=== PATIENT | female | born 1935 | race Caucasian/White ===

== ENCOUNTER 2017-06-18 04:03 | Inpatient (IN) | payer MEDICARE ==
[~2017-06-18] VITALS: Ht 147.3 cm; Wt 46.0 kg
[~2017-06-18 04:03] MED LIST: ACET-2247 PO; ASPI81TA33 PO; CLOP75 PO; DSS100 PO; METO25 PO; MULT1CAP32 PO; NITR.4 SL; PANT40TA25 PO; SENN8.6T52 PO; SIMV-261 PO; VITAD1000 PO; ZOLP5 PO
[2017-06-18] MEDS ORDERED: LACT30L PO (04:14)
[2017-06-18] MEDS ORDERED: LOSA50TA37 PO (04:14)
[2017-06-18] MEDS ORDERED: MOM30 PO (04:14)
[2017-06-18 04:23] LABS: GLUCOSE,POINT OF CARE 115 MG/DL (70-110)
[2017-06-18 05:16] LABS: BASOPHILS # (AUTO) 0.02 K/uL (0.00-0.20); BASOPHILS % (AUTO) 0.4 % (0.0-2.0); EOSINOPHILS # (AUTO) 0.13 K/uL (0.00-0.70); EOSINOPHILS % (AUTO) 2.17 % (1.0-6.0); HEMOGLOBIN 11.4 g/dL (12.0-16.0); LYMPHOCYTES # (AUTO) 1.6 K/uL (1.0-4.8); LYMPHOCYTES % (AUTO) 26.6 % (22.0-44.0); MEAN CORPUSCULAR HEMOGLOBIN 34.6 pg (26.0-34.0); MEAN CORPUSCULAR HGB CONC 33.7 G/dL (31.0-37.0); MEAN CORPUSCULAR VOLUME 103 fL (80-100); MONOCYTES # (AUTO) 0.5 K/uL (0.1-1.0); MONOCYTES % (AUTO) 8.8 % (2.0-9.0); NEUTROPHILS # (AUTO) 3.7 K/uL (1.8-7.7); NEUTROPHILS % (AUTO) 62.1 % (40.0-70.0); PLATELET COUNT (AUTO) 271 K/uL (150-450); RED BLOOD CELL COUNT(AUTO) 3.31 MIL/uL (4.00-5.20); RED CELL DISTRIBUTION WIDTH 13.8 % (11.5-14.5); WHITE BLOOD COUNT (AUTO) 5.9 K/uL (4.5-11.0)
[2017-06-18 05:20] LABS: ANION GAP 5 mmol/L (8-16); CALCIUM, TOTAL 9.7 mg/dL (8.8-10.5); CARBON DIOXIDE 35 mmol/L (22-29); CHLORIDE 100 mmol/L (98-107); GLOMERULAR FILTR. RATE CALC > 60 mL/min (>60); POTASSIUM 4.1 mmol/L (3.5-5.1); SODIUM SERUM 140 mmol/L (136-145); UREA NITROGEN, BLOOD 15 mg/dL (7-18)
[2017-06-18 05:27] LABS: ALANINE AMINOTRANSFERASE 17 U/L (12-78); ALBUMIN 3.8 g/dL (3.4-5.0); ASPARTATE AMINOTRANSFERASE 19 U/L (15-37); BILIRUBIN,TOTAL 0.4 mg/dL (0.1-1.0); TOTAL PROTEIN, SERUM 7.4 g/dL (6.4-8.2)
[2017-06-18 05:42] LABS: B-TYPE NATRIURETIC PEPTIDE 24 pg/mL (0-100)
[2017-06-18 05:44] LABS: APPEARANCE,URINE CLOUDY (CLEAR); GLUCOSE, URINE (UA) NEGATIVE (NEGATIVE); KETONES,URINE NEGATIVE (NEGATIVE); LEUKOCYTE ESTERASE ,URINE MODERATE (NEGATIVE); OCCULT BLOOD,URINE NEGATIVE (NEGATIVE); PROTEIN,URINE NEGATIVE (NEGATIVE)
[2017-06-18 05:55] LABS: ADD UA MICROSCOPIC YES
[2017-06-18 06:05] LABS: RBC,URINE 0-2 /HPF (0-2); SQUAMOUS EPITHELIAL CELL,UR Few /LPF (None Seen)
[2017-06-18] MEDS ORDERED: 0.9% SODIUM CHLORIDE 10 ML SYRINGE IVP PRN (08:45)
[2017-06-18] MEDS ORDERED: ACETAMINOPHEN 325 MG TABLET PO PRN (08:45)
[2017-06-18] MEDS ORDERED: ONDANSETRON HCL 4 MG/2 ML VIAL IVP PRN (08:45)
[2017-06-18] MEDS ORDERED: MAGNESIUM HYDROXIDE SUSPENSION 30 ML UDCUP PO PRN (09:45)
[2017-06-18 11:29] VITALS: BP 145/80
[2017-06-18] MEDS: CLOPIDOGREL BISULFATE 75 MG TABLET PO SCH (12:29)
[2017-06-18] MEDS: ASPIRIN 81 MG CHEWABLE TABLET PO SCH (12:29)
[2017-06-18] MEDS: PANTOPRAZOLE SODIUM 40 MG DR TABLET PO SCH (12:29)
[2017-06-18 16:52] VITALS: BP 164/84
[2017-06-18 19:29] VITALS: BP 171/83
[2017-06-18] MEDS: HEPARIN SODIUM,PORCINE 5,000 UNITS/ML VIAL SQ SCH (20:32)
[2017-06-18] MEDS: SIMVASTATIN 20 MG TABLET PO SCH (20:33)
[2017-06-18] MEDS: METOPROLOL TARTRATE 25 MG TABLET PO SCH (20:33)
[2017-06-18] MEDS: DOCUSATE SODIUM 100 MG CAPSULE PO SCH (20:33)
[2017-06-19 00:02] VITALS: BP 123/75
[2017-06-19 06:41] LABS: BASOPHILS % (AUTO) 0.3 % (0.0-2.0); EOSINOPHILS % (AUTO) 2.1 % (1.0-6.0); HEMATOCRIT 35.1 % (36-46); HEMOGLOBIN 11.9 g/dL (12.0-16.0); LYMPHOCYTES # (AUTO) 1.6 K/uL (1.0-4.8); LYMPHOCYTES % (AUTO) 29.5 % (22.0-44.0); MEAN CORPUSCULAR HEMOGLOBIN 34.8 pg (26.0-34.0); MEAN CORPUSCULAR VOLUME 102 fL (80-100); MONOCYTES # (AUTO) 0.6 K/uL (0.1-1.0); MONOCYTES % (AUTO) 10.6 % (2.0-9.0); NEUTROPHILS # (AUTO) 3.1 K/uL (1.8-7.7); NEUTROPHILS % (AUTO) 57.5 % (40.0-70.0); PLATELET COUNT (AUTO) 297 K/uL (150-450); RED BLOOD CELL COUNT(AUTO) 3.43 MIL/uL (4.00-5.20); RED CELL DISTRIBUTION WIDTH 14.3 % (11.5-14.5); WHITE BLOOD COUNT (AUTO) 5.5 K/uL (4.5-11.0)
[2017-06-19 07:04] LABS: ALANINE AMINOTRANSFERASE 20 U/L (12-78); ALBUMIN 3.6 g/dL (3.4-5.0); ANION GAP 5 mmol/L (8-16); ASPARTATE AMINOTRANSFERASE 23 U/L (15-37); BILIRUBIN,TOTAL 0.5 mg/dL (0.1-1.0); CARBON DIOXIDE 33 mmol/L (22-29); CHLORIDE 102 mmol/L (98-107); GLOMERULAR FILTR. RATE CALC > 60 mL/min (>60); POTASSIUM 4.1 mmol/L (3.5-5.1); SODIUM SERUM 140 mmol/L (136-145); TOTAL PROTEIN, SERUM 7.1 g/dL (6.4-8.2); UREA NITROGEN, BLOOD 10 mg/dL (7-18)
[2017-06-19 07:42] VITALS: BP 120/71
[2017-06-19 08:06] LABS: RBC MORPHOLOGY COMMENT ABNORMAL RBC MORPH
[2017-06-19] MEDS: PANTOPRAZOLE SODIUM 40 MG DR TABLET PO SCH (09:05)
[2017-06-19] MEDS: METOPROLOL TARTRATE 25 MG TABLET PO SCH ×2 (09:05→20:40)
[2017-06-19] MEDS: ASPIRIN 81 MG CHEWABLE TABLET PO SCH (09:05)
[2017-06-19] MEDS: LISINOPRIL 5 MG TABLET PO SCH (09:05)
[2017-06-19] MEDS: DOCUSATE SODIUM 100 MG CAPSULE PO SCH ×2 (09:05→20:39)
[2017-06-19] MEDS: CLOPIDOGREL BISULFATE 75 MG TABLET PO SCH (09:05)
[2017-06-19] MEDS: HEPARIN SODIUM,PORCINE 5,000 UNITS/ML VIAL SQ SCH ×2 (09:08→20:40)
[2017-06-19 11:35] VITALS: BP 121/91
[2017-06-19 15:51] VITALS: BP 161/102
[2017-06-19 19:32] VITALS: BP 104/63
[2017-06-19] MEDS: SIMVASTATIN 20 MG TABLET PO SCH (20:40)
[2017-06-19 20:45] VITALS: BP 112/65
[2017-06-20] VITALS (8 sets, daily range): BP systolic 104–140; BP diastolic 44–86
[2017-06-20] MEDS: OxyCODONE HCL/ACETAMINOPHEN 5-325 MG TABLET PO PRN (00:54)
[2017-06-20] MEDS: DOCUSATE SODIUM 100 MG CAPSULE PO SCH ×2 (09:00→20:47)
[2017-06-20] MEDS: CLOPIDOGREL BISULFATE 75 MG TABLET PO SCH (09:00)
[2017-06-20] MEDS: LISINOPRIL 5 MG TABLET PO SCH (09:00)
[2017-06-20] MEDS: PANTOPRAZOLE SODIUM 40 MG DR TABLET PO SCH (09:00)
[2017-06-20] MEDS: METOPROLOL TARTRATE 25 MG TABLET PO SCH ×2 (09:00→20:46)
[2017-06-20] MEDS: ASPIRIN 81 MG CHEWABLE TABLET PO SCH (09:00)
[2017-06-20] MEDS: HEPARIN SODIUM,PORCINE 5,000 UNITS/ML VIAL SQ SCH ×2 (09:31→20:47)
[2017-06-20] MEDS: ACETAMINOPHEN 325 MG TABLET PO PRN (12:41)
[2017-06-20] MEDS ORDERED: SODIUM CHLORIDE 0.9% 250 ML IV ONE (16:32)
[2017-06-20] MEDS: LEVOFLOXACIN 500 MG/D5% WATER 100 ML IV SCH (16:39)
[2017-06-20] MEDS: SIMVASTATIN 20 MG TABLET PO SCH (20:46)
[2017-06-21 04:48] VITALS: BP 152/59
[2017-06-21 07:18] VITALS: BP 103/44
[2017-06-21] MEDS: ASPIRIN 81 MG CHEWABLE TABLET PO SCH (08:53)
[2017-06-21] MEDS: METOPROLOL TARTRATE 25 MG TABLET PO SCH ×2 (08:53→20:29)
[2017-06-21] MEDS: LISINOPRIL 5 MG TABLET PO SCH (08:53)
[2017-06-21] MEDS: PANTOPRAZOLE SODIUM 40 MG DR TABLET PO SCH (08:53)
[2017-06-21] MEDS: HEPARIN SODIUM,PORCINE 5,000 UNITS/ML VIAL SQ SCH ×2 (08:53→20:29)
[2017-06-21] MEDS: CLOPIDOGREL BISULFATE 75 MG TABLET PO SCH (08:53)
[2017-06-21] MEDS: DOCUSATE SODIUM 100 MG CAPSULE PO SCH ×2 (08:53→20:29)
[2017-06-21 11:00] VITALS: BP 110/68
[2017-06-21 15:00] VITALS: BP 122/58
[2017-06-21] MEDS: ACETAMINOPHEN 325 MG TABLET PO PRN (18:01)
[2017-06-21] MEDS: LEVOFLOXACIN 500 MG/D5% WATER 100 ML IV SCH (18:03)
[2017-06-21 19:17] VITALS: BP 140/92
[2017-06-21] MEDS: SIMVASTATIN 20 MG TABLET PO SCH (20:29)
[2017-06-21 23:20] VITALS: BP 149/67
[2017-06-22 04:10] VITALS: BP 155/70
[2017-06-22 07:23] VITALS: BP 133/89
[2017-06-22] MEDS: DOCUSATE SODIUM 100 MG CAPSULE PO SCH ×2 (08:16→20:25)
[2017-06-22] MEDS: ASPIRIN 81 MG CHEWABLE TABLET PO SCH (08:16)
[2017-06-22] MEDS: CLOPIDOGREL BISULFATE 75 MG TABLET PO SCH (08:17)
[2017-06-22] MEDS: PANTOPRAZOLE SODIUM 40 MG DR TABLET PO SCH (08:17)
[2017-06-22] MEDS: LISINOPRIL 5 MG TABLET PO SCH (08:17)
[2017-06-22] MEDS: METOPROLOL TARTRATE 25 MG TABLET PO SCH ×2 (08:17→20:25)
[2017-06-22] MEDS: HEPARIN SODIUM,PORCINE 5,000 UNITS/ML VIAL SQ SCH ×2 (08:18→20:59)
[2017-06-22] MEDS ORDERED: HEPA500018 SQ (12:14)
[2017-06-22] MEDS ORDERED: HEPA500041 SQ (12:14)
[2017-06-22] MEDS ORDERED: LISI-660 PO (12:16)
[2017-06-22] MEDS ORDERED: METO25 PO (12:16)
[2017-06-22] MEDS ORDERED: PANT40TA25 PO (12:21)
[2017-06-22] MEDS ORDERED: SIMV-260 PO (12:22)
[2017-06-22 14:51] VITALS: BP 92/60
[2017-06-22] MEDS ORDERED: ASPIRIN 325 MG TABLET PO ONE (16:45)
[2017-06-22] MEDS ORDERED: IOVERSOL 350 MG/ML 100 ML VIAL ONE (17:15)
[2017-06-22] MEDS ORDERED: SODIUM CHLORIDE 0.9% 100 ML ONE (17:15)
[2017-06-22 18:35] LABS: BASOPHILS % (AUTO) 0.3 % (0.0-2.0); EOSINOPHILS % (AUTO) 2.5 % (1.0-6.0); HEMATOCRIT 31.8 % (36-46); HEMOGLOBIN 10.8 g/dL (12.0-16.0); LYMPHOCYTES # (AUTO) 1.5 K/uL (1.0-4.8); LYMPHOCYTES % (AUTO) 28.7 % (22.0-44.0); MEAN CORPUSCULAR HEMOGLOBIN 34.9 pg (26.0-34.0); MEAN CORPUSCULAR HGB CONC 33.9 G/dL (31.0-37.0); MEAN CORPUSCULAR VOLUME 103 fL (80-100); MONOCYTES # (AUTO) 0.7 K/uL (0.1-1.0); MONOCYTES % (AUTO) 13.7 % (2.0-9.0); NEUTROPHILS # (AUTO) 2.9 K/uL (1.8-7.7); NEUTROPHILS % (AUTO) 54.8 % (40.0-70.0); PLATELET COUNT (AUTO) 254 K/uL (150-450); RED BLOOD CELL COUNT(AUTO) 3.09 MIL/uL (4.00-5.20); RED CELL DISTRIBUTION WIDTH 13.7 % (11.5-14.5); WHITE BLOOD COUNT (AUTO) 5.4 K/uL (4.5-11.0)
[2017-06-22 19:26] LABS: RBC MORPHOLOGY COMMENT NORMAL RBC MORPH
[2017-06-22 19:29] LABS: ANION GAP 6 mmol/L (8-16); CALCIUM, TOTAL 9.4 mg/dL (8.8-10.5); CARBON DIOXIDE 35 mmol/L (22-29); CHLORIDE 97 mmol/L (98-107); CREATININE 0.67 mg/dL (0.60-1.30); GLOMERULAR FILTR. RATE CALC > 60 mL/min (>60); POTASSIUM 4.5 mmol/L (3.5-5.1); SODIUM SERUM 138 mmol/L (136-145); UREA NITROGEN, BLOOD 15 mg/dL (7-18)
[2017-06-22 19:33] LABS: PHOSPHORUS 3.1 mg/dL (2.5-4.9)
[2017-06-22 20:00] VITALS: BP 146/74
[2017-06-22] MEDS: SIMVASTATIN 20 MG TABLET PO SCH (20:25)
[2017-06-22] MEDS ORDERED: SODIUM CHLORIDE 0.9% 250 ML IV ONE (21:01)
[2017-06-22] MEDS: LEVOFLOXACIN 500 MG/D5% WATER 100 ML IV SCH (21:04)
[2017-06-23] VITALS (7 sets, daily range): BP systolic 70–145; BP diastolic 40–83
[2017-06-23 07:17] LABS: GLUCOSE,POINT OF CARE 107 MG/DL (70-110)
[2017-06-23] MEDS: METOPROLOL TARTRATE 25 MG TABLET PO SCH ×2 (09:00→20:52)
[2017-06-23] MEDS: LISINOPRIL 5 MG TABLET PO SCH (09:00)
[2017-06-23] MEDS: CLOPIDOGREL BISULFATE 75 MG TABLET PO SCH (09:20)
[2017-06-23] MEDS: ASPIRIN 81 MG CHEWABLE TABLET PO SCH (09:20)
[2017-06-23] MEDS: PANTOPRAZOLE SODIUM 40 MG DR TABLET PO SCH (09:20)
[2017-06-23] MEDS: DOCUSATE SODIUM 100 MG CAPSULE PO SCH ×2 (09:20→20:51)
[2017-06-23] MEDS: HEPARIN SODIUM,PORCINE 5,000 UNITS/ML VIAL SQ SCH ×2 (09:20→20:51)
[2017-06-23] MEDS: LEVOFLOXACIN 500 MG/D5% WATER 100 ML IV SCH (15:57)
[2017-06-23] MEDS: OxyCODONE HCL/ACETAMINOPHEN 5-325 MG TABLET PO PRN (20:14)
[2017-06-23] MEDS: SIMVASTATIN 20 MG TABLET PO SCH (20:51)
[2017-06-23] MEDS: ACETAMINOPHEN 325 MG TABLET PO PRN (23:43)
[2017-06-24 05:03] VITALS: BP 147/50
[2017-06-24 06:25] LABS: BASOPHILS % (AUTO) 0.2 % (0.0-2.0); EOSINOPHILS % (AUTO) 1.7 % (1.0-6.0); HEMATOCRIT 30.1 % (36-46); HEMOGLOBIN 10.3 g/dL (12.0-16.0); LYMPHOCYTES # (AUTO) 1.2 K/uL (1.0-4.8); LYMPHOCYTES % (AUTO) 17.4 % (22.0-44.0); MEAN CORPUSCULAR HEMOGLOBIN 35.3 pg (26.0-34.0); MEAN CORPUSCULAR VOLUME 104 fL (80-100); MONOCYTES # (AUTO) 0.9 K/uL (0.1-1.0); NEUTROPHILS # (AUTO) 4.5 K/uL (1.8-7.7); NEUTROPHILS % (AUTO) 67.7 % (40.0-70.0); PLATELET COUNT (AUTO) 218 K/uL (150-450); RED CELL DISTRIBUTION WIDTH 13.6 % (11.5-14.5); WHITE BLOOD COUNT (AUTO) 6.7 K/uL (4.5-11.0)
[2017-06-24 07:00] LABS: ANION GAP 2 mmol/L (8-16); CARBON DIOXIDE 38 mmol/L (22-29); CHLORIDE 98 mmol/L (98-107); CREATININE 0.67 mg/dL (0.60-1.30); POTASSIUM 4.3 mmol/L (3.5-5.1); SODIUM SERUM 138 mmol/L (136-145); UREA NITROGEN, BLOOD 16 mg/dL (7-18)
[2017-06-24 07:01] LABS: ALANINE AMINOTRANSFERASE 18 U/L (12-78); ALBUMIN 3.2 g/dL (3.4-5.0); ASPARTATE AMINOTRANSFERASE 14 U/L (15-37); BILIRUBIN,TOTAL 0.2 mg/dL (0.1-1.0); GLOMERULAR FILTR. RATE CALC > 60 mL/min (>60); TOTAL PROTEIN, SERUM 6.9 g/dL (6.4-8.2)
[2017-06-24 07:14] VITALS: BP 145/70
[2017-06-24] MEDS ORDERED: OXYGEN THERAPY IH SCH (08:00)
[2017-06-24 08:22] LABS: RBC MORPHOLOGY COMMENT ABNORMAL RBC MORPH
[2017-06-24] MEDS: DOCUSATE SODIUM 100 MG CAPSULE PO SCH (08:46)
[2017-06-24] MEDS: ASPIRIN 81 MG CHEWABLE TABLET PO SCH (08:46)
[2017-06-24] MEDS: LISINOPRIL 5 MG TABLET PO SCH (08:47)
[2017-06-24] MEDS: HEPARIN SODIUM,PORCINE 5,000 UNITS/ML VIAL SQ SCH (08:47)
[2017-06-24] MEDS: CLOPIDOGREL BISULFATE 75 MG TABLET PO SCH (08:47)
[2017-06-24] MEDS: METOPROLOL TARTRATE 25 MG TABLET PO SCH (08:47)
[2017-06-24] MEDS: PANTOPRAZOLE SODIUM 40 MG DR TABLET PO SCH (08:47)
[2017-06-24] MEDS ORDERED: PANT40TA25 PO (10:32)
[2017-06-24] MEDS ORDERED: LEVO500P7 IV ×2 (10:34→10:36)
[2017-06-24 11:47] VITALS: BP 116/61
[2017-06-24] MEDS ORDERED: SODIUM CHLORIDE 0.9% 100 ML ONE (15:39)
[2017-06-24] MEDS: LEVOFLOXACIN 500 MG/D5% WATER 100 ML IV SCH (15:47)
[2017-06-24 16:48] VITALS: BP 119/62
== END 2017-06-24 17:00 | DRG 69 ==
LOC: EMS 04:04 → 5N 09:52 → ICU 06-22 17:15 → 5S 06-23 18:50
PROVIDERS: ADMIT Internal Medicine; ATTEND Internal Medicine
DX: G45.9 Transient cerebral ischemic attack, unspecified (principal); G93.41 Metabolic encephalopathy; N39.0 Urinary tract infection, site not specified; F03.90 Unspecified dementia, unspecified severity, without behavioral disturbance, psychotic disturbance, mood disturbance, and anxiety; R07.89 Other chest pain; I25.10 Atherosclerotic heart disease of native coronary artery without angina pectoris; J44.9 Chronic obstructive pulmonary disease, unspecified; E11.9 Type 2 diabetes mellitus without complications; E78.5 Hyperlipidemia, unspecified; I10 Essential (primary) hypertension; I25.119 Atherosclerotic heart disease of native coronary artery with unspecified angina pectoris; R29.810 Facial weakness; F41.1 Generalized anxiety disorder; M19.90 Unspecified osteoarthritis, unspecified site; Z95.5 Presence of coronary angioplasty implant and graft; Z88.8 Allergy status to other drugs, medicaments and biological substances; Z82.49 Family history of ischemic heart disease and other diseases of the circulatory system; Z88.0 Allergy status to penicillin; Z91.013 Allergy to seafood
CPT/HCPCS: 70450; 70496; 74022; 82962; 83735; 84100; 87081; 87086; 92610; 93005; 95816; 97162; 99285; J1644; J1956; J7050

== ENCOUNTER 2017-06-28 22:06 | Inpatient (IN) | payer MEDICARE ==
[~2017-06-28] VITALS: Ht 152.4 cm; Wt 44.2 kg
[~2017-06-28 22:06] MED LIST changes: +HEPA500018 SQ; +LEVO500P7 IV; +LISI-660 PO; +MOM30 PO; -NITR.4 SL; -SENN8.6T52 PO; +SIMV-260 PO; -SIMV-261 PO; -ZOLP5 PO
[2017-06-28 22:22] LABS: GLUCOSE,POINT OF CARE 101 MG/DL (70-110)
[2017-06-28] MEDS ORDERED: BISA10S PR (22:22)
[2017-06-28] MEDS ORDERED: FE RC (22:22)
[2017-06-28 22:48] LABS: BASOPHILS # (AUTO) 0.03 K/uL (0.00-0.20); BASOPHILS % (AUTO) 0.6 % (0.0-2.0); EOSINOPHILS # (AUTO) 0.15 K/uL (0.00-0.70); EOSINOPHILS % (AUTO) 3.33 % (1.0-6.0); HEMOGLOBIN 10.3 g/dL (12.0-16.0); LYMPHOCYTES # (AUTO) 1.5 K/uL (1.0-4.8); LYMPHOCYTES % (AUTO) 32.1 % (22.0-44.0); MEAN CORPUSCULAR HEMOGLOBIN 34.3 pg (26.0-34.0); MEAN CORPUSCULAR HGB CONC 33.1 G/dL (31.0-37.0); MEAN CORPUSCULAR VOLUME 104 fL (80-100); MONOCYTES # (AUTO) 0.7 K/uL (0.1-1.0); MONOCYTES % (AUTO) 16.1 % (2.0-9.0); NEUTROPHILS # (AUTO) 2.2 K/uL (1.8-7.7); NEUTROPHILS % (AUTO) 47.9 % (40.0-70.0); PLATELET COUNT (AUTO) 220 K/uL (150-450); RED BLOOD CELL COUNT(AUTO) 2.99 MIL/uL (4.00-5.20); RED CELL DISTRIBUTION WIDTH 14.3 % (11.5-14.5); WHITE BLOOD COUNT (AUTO) 4.6 K/uL (4.5-11.0)
[2017-06-28 23:18] LABS: INR 1.1 (0.9-1.1); PROTHROMBIN TIME 11.2 SEC (9.4-11.6)
[2017-06-28 23:20] LABS: B-TYPE NATRIURETIC PEPTIDE 27 pg/mL (0-100)
[2017-06-28 23:30] LABS: ANION GAP 4 mmol/L (8-16); CALCIUM, TOTAL 9.3 mg/dL (8.8-10.5); CARBON DIOXIDE 34 mmol/L (22-29); CHLORIDE 102 mmol/L (98-107); CREATININE 0.66 mg/dL (0.60-1.30); GLOMERULAR FILTR. RATE CALC > 60 mL/min (>60); POTASSIUM 4.6 mmol/L (3.5-5.1); SODIUM SERUM 140 mmol/L (136-145); UREA NITROGEN, BLOOD 16 mg/dL (7-18)
[2017-06-28] MEDS ORDERED: MAG HYDROX/AL HYDROX/SIMETH ES 30 ML SUSPENSION UDCUP PO ONE (23:30)
[2017-06-28 23:42] LABS: ALANINE AMINOTRANSFERASE 18 U/L (12-78); ALBUMIN 3.2 g/dL (3.4-5.0); ASPARTATE AMINOTRANSFERASE 13 U/L (15-37); BILIRUBIN,TOTAL 0.2 mg/dL (0.1-1.0); CREATINE KINASE MB 0.6 ng/mL (0-5); CREATINE KINASE, TOTAL 80 U/L (26-192); TOTAL PROTEIN, SERUM 6.9 g/dL (6.4-8.2)
[2017-06-29 00:47] LABS: APPEARANCE,URINE CLEAR (CLEAR); GLUCOSE, URINE (UA) NEGATIVE (NEGATIVE); KETONES,URINE NEGATIVE (NEGATIVE); LEUKOCYTE ESTERASE ,URINE SMALL (NEGATIVE); OCCULT BLOOD,URINE NEGATIVE (NEGATIVE); PROTEIN,URINE NEGATIVE (NEGATIVE)
[2017-06-29 00:50] LABS: ADD UA MICROSCOPIC YES
[2017-06-29] MEDS ORDERED: ACETAMINOPHEN 325 MG TABLET PO ONE (01:15)
[2017-06-29 01:18] LABS: RBC,URINE 0-2 /HPF (0-2)
[2017-06-29 01:19] LABS: SQUAMOUS EPITHELIAL CELL,UR Rare /LPF (None Seen)
[2017-06-29] MEDS ORDERED: HYDROmorphone 2 MG/ML SYRINGE IVP ONE (02:45)
[2017-06-29] MEDS ORDERED: POTASSIUM CHL 20 MEQ/D5-0.45NS 1,000 ML IV ONE (02:45)
[2017-06-29] MEDS ORDERED: BARIUM SULFATE 0.1% SUSPENSION 450 ML BOTTLE PO ONE (02:45)
[2017-06-29] MEDS ORDERED: MORPHINE SULFATE 4 MG/ML SYRINGE IVP PRN (02:45)
[2017-06-29] MEDS ORDERED: 0.9% SODIUM CHLORIDE 10 ML SYRINGE IVP PRN (02:45)
[2017-06-29] MEDS ORDERED: ONDANSETRON HCL 4 MG/2 ML VIAL IVP PRN ×2 (02:45→04:00)
[2017-06-29] MEDS ORDERED: ONDANSETRON HCL 4 MG/2 ML VIAL IVP ONE (02:45)
[2017-06-29] MEDS ORDERED: ACETAMINOPHEN 325 MG TABLET PO PRN ×2 (02:45→04:00)
[2017-06-29] MEDS ORDERED: IOVERSOL 350 MG/ML 100 ML VIAL ONE (03:15)
[2017-06-29] MEDS ORDERED: SODIUM CHLORIDE 0.9% 100 ML ONE (03:15)
[2017-06-29] MEDS ORDERED: OxyCODONE HCL/ACETAMINOPHEN 5-325 MG TABLET PO PRN (04:00)
[2017-06-29] MEDS ORDERED: BISACODYL 10 MG RECTAL RECTAL SUPPOSITORY PR PRN (04:00)
[2017-06-29] MEDS ORDERED: IPRATROPIUM BROMIDE 0.5 MG/2.5 ML NEB SOLUTION NEB PRN (04:00)
[2017-06-29] MEDS ORDERED: ALBUTEROL SULFATE 2.5 MG/0.5 ML NEB SOLUTION NEB PRN (04:00)
[2017-06-29] MEDS ORDERED: ZOLPIDEM TARTRATE 5 MG TABLET PO PRN (04:00)
[2017-06-29] MEDS ORDERED: MORPHINE SULFATE 2 MG/ML SYRINGE IVP PRN (04:00)
[2017-06-29] MEDS ORDERED: MAGNESIUM HYDROXIDE SUSPENSION 30 ML UDCUP PO PRN (04:00)
[2017-06-29 05:16] VITALS: BP 117/92
[2017-06-29 07:19] VITALS: BP_SYST 107; BP_SYST 114; BP_DIAS 51; BP_DIAS 60
[2017-06-29] MEDS: METOPROLOL TARTRATE 25 MG TABLET PO SCH ×2 (08:40→20:37)
[2017-06-29] MEDS: LISINOPRIL 5 MG TABLET PO SCH (08:40)
[2017-06-29] MEDS: SIMVASTATIN 20 MG TABLET PO SCH (08:40)
[2017-06-29] MEDS: ASPIRIN 81 MG EC TABLET PO SCH (08:40)
[2017-06-29] MEDS: PANTOPRAZOLE SODIUM 40 MG/VIAL IVP SCH (08:40)
[2017-06-29] MEDS: HEPARIN SODIUM,PORCINE 5,000 UNITS/ML VIAL SQ SCH ×2 (08:48→20:38)
[2017-06-29 11:43] VITALS: BP 133/65
[2017-06-29 15:37] VITALS: BP 133/68
[2017-06-29 19:45] VITALS: BP 100/61
[2017-06-29] MEDS: CLOPIDOGREL BISULFATE 75 MG TABLET PO SCH (20:37)
[2017-06-29 23:15] VITALS: BP 110/55
[2017-06-30 04:05] VITALS: BP 123/50
[2017-06-30 06:01] LABS: BASOPHILS # (AUTO) 0.02 K/uL (0.00-0.20); BASOPHILS % (AUTO) 0.3 % (0.0-2.0); EOSINOPHILS % (AUTO) 1.47 % (1.0-6.0); HEMATOCRIT 32.3 % (36-46); HEMOGLOBIN 10.7 g/dL (12.0-16.0); LYMPHOCYTES # (AUTO) 1.4 K/uL (1.0-4.8); LYMPHOCYTES % (AUTO) 20.3 % (22.0-44.0); MEAN CORPUSCULAR HEMOGLOBIN 34.6 pg (26.0-34.0); MEAN CORPUSCULAR HGB CONC 33.2 G/dL (31.0-37.0); MEAN CORPUSCULAR VOLUME 104 fL (80-100); MONOCYTES # (AUTO) 0.8 K/uL (0.1-1.0); MONOCYTES % (AUTO) 10.8 % (2.0-9.0); NEUTROPHILS # (AUTO) 4.8 K/uL (1.8-7.7); NEUTROPHILS % (AUTO) 67.2 % (40.0-70.0); PLATELET COUNT (AUTO) 253 K/uL (150-450); RED CELL DISTRIBUTION WIDTH 14.1 % (11.5-14.5); WHITE BLOOD COUNT (AUTO) 7.1 K/uL (4.5-11.0)
[2017-06-30 06:05] LABS: PROTHROMBIN TIME 10.6 SEC (9.4-11.6)
[2017-06-30 06:41] LABS: ALANINE AMINOTRANSFERASE 15 U/L (12-78); AMYLASE 52 U/L (25-115); ASPARTATE AMINOTRANSFERASE 13 U/L (15-37); BILIRUBIN,TOTAL 0.2 mg/dL (0.1-1.0); CHLORIDE 100 mmol/L (98-107); CHOL/HDL RATIO 2.7 (3.9-5.7); CREATININE 0.59 mg/dL (0.60-1.30); GLOMERULAR FILTR. RATE CALC > 60 mL/min (>60); PHOSPHORUS 4.2 mg/dL (2.5-4.9); POTASSIUM 4.7 mmol/L (3.5-5.1); SODIUM SERUM 140 mmol/L (136-145); THYROID STIMULATING HORMONE 3.97 uIU/mL (0.36-3.74); TOTAL PROTEIN, SERUM 6.6 g/dL (6.4-8.2); UREA NITROGEN, BLOOD 7 mg/dL (7-18)
[2017-06-30 06:56] LABS: ANION GAP 0 mmol/L (8-16)
[2017-06-30 06:57] LABS: CARBON DIOXIDE 40 mmol/L (22-29)
[2017-06-30 07:08] VITALS: BP 129/61
[2017-06-30] MEDS: CLOPIDOGREL BISULFATE 75 MG TABLET PO SCH (07:58)
[2017-06-30] MEDS: ASPIRIN 81 MG EC TABLET PO SCH (07:58)
[2017-06-30] MEDS: PANTOPRAZOLE SODIUM 40 MG/VIAL IVP SCH (07:58)
[2017-06-30] MEDS: HEPARIN SODIUM,PORCINE 5,000 UNITS/ML VIAL SQ SCH ×2 (07:58→20:06)
[2017-06-30] MEDS: SIMVASTATIN 20 MG TABLET PO SCH (07:58)
[2017-06-30] MEDS: LISINOPRIL 5 MG TABLET PO SCH (07:59)
[2017-06-30] MEDS: METOPROLOL TARTRATE 25 MG TABLET PO SCH ×2 (08:00→20:06)
[2017-06-30 09:32] LABS: RBC MORPHOLOGY COMMENT ABNORMAL RBC MORPH
[2017-06-30 11:25] VITALS: BP 99/55
[2017-06-30 15:41] VITALS: BP 83/44
[2017-06-30 16:11] VITALS: BP 101/73
[2017-06-30 19:53] VITALS: BP 105/56
[2017-07-01 00:52] VITALS: BP 118/55
[2017-07-01 05:16] VITALS: BP 108/50
[2017-07-01 08:11] VITALS: BP 112/66
[2017-07-01] MEDS: HEPARIN SODIUM,PORCINE 5,000 UNITS/ML VIAL SQ SCH (09:51)
[2017-07-01] MEDS: PANTOPRAZOLE SODIUM 40 MG/VIAL IVP SCH (09:51)
[2017-07-01] MEDS: SIMVASTATIN 20 MG TABLET PO SCH (09:51)
[2017-07-01] MEDS: CLOPIDOGREL BISULFATE 75 MG TABLET PO SCH (09:51)
[2017-07-01] MEDS: ASPIRIN 81 MG EC TABLET PO SCH (09:51)
[2017-07-01] MEDS: METOPROLOL TARTRATE 25 MG TABLET PO SCH (09:52)
[2017-07-01] MEDS: LISINOPRIL 5 MG TABLET PO SCH (09:52)
[2017-07-01 11:06] VITALS: BP 103/74
[2017-07-01 15:08] VITALS: BP 103/68
[2017-07-01 19:44] VITALS: BP 120/80
== END 2017-07-01 20:05 | DRG 391 ==
LOC: EMS 22:08 → 5N 06-29 03:36
PROVIDERS: ADMIT Internal Medicine; ATTEND Internal Medicine
DX: R10.9 Unspecified abdominal pain (principal); G93.40 Encephalopathy, unspecified; E44.0 Moderate protein-calorie malnutrition; F03.90 Unspecified dementia, unspecified severity, without behavioral disturbance, psychotic disturbance, mood disturbance, and anxiety; E11.9 Type 2 diabetes mellitus without complications; D64.9 Anemia, unspecified; I10 Essential (primary) hypertension; J98.11 Atelectasis; K59.00 Constipation, unspecified; E86.0 Dehydration; J44.9 Chronic obstructive pulmonary disease, unspecified; F32.9 Major depressive disorder, single episode, unspecified; F41.9 Anxiety disorder, unspecified; E78.5 Hyperlipidemia, unspecified; I25.10 Atherosclerotic heart disease of native coronary artery without angina pectoris; K21.9 Gastro-esophageal reflux disease without esophagitis; Z86.73 Personal history of transient ischemic attack (TIA), and cerebral infarction without residual deficits; M19.90 Unspecified osteoarthritis, unspecified site; Z79.02 Long term (current) use of antithrombotics/antiplatelets; Z79.82 Long term (current) use of aspirin; Z95.5 Presence of coronary angioplasty implant and graft; Z88.0 Allergy status to penicillin; Z91.013 Allergy to seafood
CPT/HCPCS: 74177; 76700; 82306; 82962; 83735; 84100; 84439; 84443; 87081; 93005; 96361; 96374; 96375; 99285; C9113; J1170; J1644; J2405; J3480; J7050

== ENCOUNTER 2017-07-13 21:55 | Inpatient (IN) | payer MEDICARE ==
[~2017-07-13] VITALS: Ht 154.9 cm; Wt 45.9 kg
[~2017-07-13 21:55] MED LIST changes: +BISA10S PR; -CLOP75 PO; +FE RC; -MULT1CAP32 PO; -VITAD1000 PO
[2017-07-13] MEDS ORDERED: 0.9% SODIUM CHLORIDE 10 ML SYRINGE IVP PRN (22:00)
[2017-07-13] MEDS ORDERED: NITR.4 SL (22:06)
[2017-07-13] MEDS ORDERED: MULT1TAB70 PO (22:06)
[2017-07-13] MEDS ORDERED: CLON-570 PO (22:06)
[2017-07-13] MEDS ORDERED: ALPR0.5T8 PO (22:06)
[2017-07-13] MEDS ORDERED: CLOP75 PO (22:06)
[2017-07-13] MEDS ORDERED: VITAD1000 PO (22:06)
[2017-07-13] MEDS ORDERED: MIDAZOLAM HCL 5 MG/ML VIAL IVP ONE (22:15)
[2017-07-13 22:23] LABS: EOSINOPHILS % (AUTO) 2.4 % (1.0-6.0); HEMATOCRIT 29.3 % (36-46); HEMOGLOBIN 9.8 g/dL (12.0-16.0); LYMPHOCYTES # (AUTO) 1.5 K/uL (1.0-4.8); MEAN CORPUSCULAR HEMOGLOBIN 34.4 pg (26.0-34.0); MEAN CORPUSCULAR HGB CONC 33.4 G/dL (31.0-37.0); MEAN CORPUSCULAR VOLUME 103 fL (80-100); MONOCYTES # (AUTO) 0.7 K/uL (0.1-1.0); MONOCYTES % (AUTO) 10.8 % (2.0-9.0); NEUTROPHILS # (AUTO) 4.4 K/uL (1.8-7.7); NEUTROPHILS % (AUTO) 63.8 % (40.0-70.0); PLATELET COUNT (AUTO) 343 K/uL (150-450); RED BLOOD CELL COUNT(AUTO) 2.85 MIL/uL (4.00-5.20); RED CELL DISTRIBUTION WIDTH 14.6 % (11.5-14.5); WHITE BLOOD COUNT (AUTO) 6.9 K/uL (4.5-11.0)
[2017-07-13] MEDS ORDERED: MIDAZOLAM HCL 2 MG/2 ML VIAL IVP ONE (22:30)
[2017-07-13 22:36] LABS: PROTHROMBIN TIME 10.9 SEC (9.4-11.6)
[2017-07-13 22:37] LABS: ANION GAP 1 mmol/L (8-16); CALCIUM, TOTAL 9.6 mg/dL (8.8-10.5); CARBON DIOXIDE 37 mmol/L (22-29); CHLORIDE 97 mmol/L (98-107); CREATININE 0.58 mg/dL (0.60-1.30); GLOMERULAR FILTR. RATE CALC > 60 mL/min (>60); POTASSIUM 4.3 mmol/L (3.5-5.1); SODIUM SERUM 135 mmol/L (136-145); UREA NITROGEN, BLOOD 14 mg/dL (7-18)
[2017-07-13 22:43] LABS: RBC MORPHOLOGY COMMENT ABNORMAL RBC MORPH
[2017-07-13] MEDS ORDERED: IPRATROPIUM BROMIDE 0.5 MG/2.5 ML NEB SOLUTION NEB ONE (23:00)
[2017-07-13] MEDS ORDERED: ALBUTEROL SULFATE 2.5 MG/0.5 ML NEB SOLUTION NEB ONE (23:00)
[2017-07-13 23:02] LABS: GLUCOSE,POINT OF CARE 125 MG/DL (70-110)
[2017-07-13 23:07] LABS: ABG A-A DIFF O2 314.9 mmHg (10-20.0); ABG BASE EXCESS 13.2 mmol/L (-2.0-3.0); ABG HCO3 34.2 mmol/L (22.0-26.0); ABG OXYHEMOGLOBIN 98.3 % (94.0-100.0); ABG PCO2 98 mmHg (35-45); ABG PH 7.237 (7.35-7.450); ALLEN TEST, BLOOD GAS POSITIVE; TEMPERATURE, FAHRENHEIT, BG 98.6 FAHREN (96.0-98.6)
[2017-07-13 23:08] LABS: ALANINE AMINOTRANSFERASE 15 U/L (12-78); ALBUMIN 3.3 g/dL (3.4-5.0); ASPARTATE AMINOTRANSFERASE 16 U/L (15-37); BILIRUBIN,TOTAL 0.4 mg/dL (0.1-1.0); CREATINE KINASE MB 1.4 ng/mL (0-5); CREATINE KINASE, TOTAL 134 U/L (26-192); TOTAL PROTEIN, SERUM 7.2 g/dL (6.4-8.2)
[2017-07-13] MEDS ORDERED: FLUMAZENIL 0.1 MG/ML 5 ML VIAL IVP ONE (23:15)
[2017-07-13 23:31] LABS: APPEARANCE,URINE CLOUDY (CLEAR); GLUCOSE, URINE (UA) NEGATIVE (NEGATIVE); KETONES,URINE NEGATIVE (NEGATIVE); LEUKOCYTE ESTERASE ,URINE MODERATE (NEGATIVE); OCCULT BLOOD,URINE NEGATIVE (NEGATIVE); PROTEIN,URINE NEGATIVE (NEGATIVE)
[2017-07-13 23:36] LABS: ADD UA MICROSCOPIC YES
[2017-07-13 23:38] LABS: SQUAMOUS EPITHELIAL CELL,UR Few /LPF (None Seen); TRANSITIONAL EPI CELLS,URINE Few /LPF (None Seen); WBC,URINE 51-100 /HPF (0-5)
[2017-07-13 23:39] LABS: RBC,URINE 0-2 /HPF (0-2)
[2017-07-14] MEDS ORDERED: 0.9% SODIUM CHLORIDE 10 ML SYRINGE IVP PRN
[2017-07-14 00:32] LABS: ABG A-A DIFF O2 380.4 mmHg (10-20.0); ABG BASE EXCESS 11.9 mmol/L (-2.0-3.0); ABG HCO3 33.7 mmol/L (22.0-26.0); ABG OXYHEMOGLOBIN 98.2 % (94.0-100.0); ABG PCO2 70 mmHg (35-45); ABG PH 7.347 (7.35-7.450); ALLEN TEST, BLOOD GAS POSITIVE; IPAP, BG 12 cm H2O; TEMPERATURE, FAHRENHEIT, BG 98.2 FAHREN (96.0-98.6)
[2017-07-14] MEDS ORDERED: IPRATROPIUM BROMIDE 0.5 MG/2.5 ML NEB SOLUTION NEB PRN (01:15)
[2017-07-14] MEDS ORDERED: MORPHINE SULFATE 2 MG/ML SYRINGE IVP PRN (01:15)
[2017-07-14] MEDS ORDERED: ZOLPIDEM TARTRATE 5 MG TABLET PO PRN (01:15)
[2017-07-14] MEDS ORDERED: OxyCODONE HCL/ACETAMINOPHEN 5-325 MG TABLET PO PRN (01:15)
[2017-07-14] MEDS ORDERED: ONDANSETRON HCL 4 MG/2 ML VIAL IVP PRN ×2 (01:15)
[2017-07-14] MEDS ORDERED: BISACODYL 10 MG RECTAL RECTAL SUPPOSITORY PR PRN (01:15)
[2017-07-14] MEDS ORDERED: ACETAMINOPHEN 325 MG TABLET PO PRN ×2 (01:15)
[2017-07-14] MEDS ORDERED: ALBUTEROL SULFATE 2.5 MG/0.5 ML NEB SOLUTION NEB PRN (01:15)
[2017-07-14] MEDS ORDERED: MAGNESIUM HYDROXIDE SUSPENSION 30 ML UDCUP PO PRN (01:15)
[2017-07-14] MEDS: CIPROFLOXACIN 400 MG/D5% WATER 200 ML IV SCH ×2 (01:55→13:46)
[2017-07-14 05:12] LABS: ABG A-A DIFF O2 175.1 mmHg (10-20.0); ABG BASE EXCESS 14.4 mmol/L (-2.0-3.0); ABG HCO3 35.9 mmol/L (22.0-26.0); ABG OXYHEMOGLOBIN 91.7 % (94.0-100.0); ABG PH 7.382 (7.35-7.450); TEMPERATURE, FAHRENHEIT, BG 98.6 FAHREN (96.0-98.6)
[2017-07-14 05:13] LABS: ABG PCO2 68 mmHg (35-45); ALLEN TEST, BLOOD GAS POSITIVE; IPAP, BG 14 cm H2O
[2017-07-14] MEDS ORDERED: CefTRIAXone 1 GM/DEXTROSE 50 ML IV ONE (05:45)
[2017-07-14] MEDS: LEVOTHYROXINE SODIUM 25 MCG TABLET PO SCH (06:30)
[2017-07-14 07:52] LABS: GLUCOSE,POINT OF CARE 98 MG/DL (70-110)
[2017-07-14] MEDS: LISINOPRIL 5 MG TABLET PO SCH ×2 (09:00→09:39)
[2017-07-14] MEDS: CHOLECALCIFEROL (VIT D3) 1,000 UNITS TABLET PO SCH (09:00)
[2017-07-14] MEDS: MULTIVITAMINS, THERAPEUTIC TABLET PO SCH (09:00)
[2017-07-14] MEDS: CLOPIDOGREL BISULFATE 75 MG TABLET PO SCH (09:35)
[2017-07-14] MEDS: SIMVASTATIN 20 MG TABLET PO SCH (09:35)
[2017-07-14] MEDS: PANTOPRAZOLE SODIUM 40 MG DR TABLET PO SCH (09:35)
[2017-07-14] MEDS: HEPARIN SODIUM,PORCINE 5,000 UNITS/ML VIAL SQ SCH ×2 (09:36→21:04)
[2017-07-14] MEDS: METOPROLOL TARTRATE 25 MG TABLET PO SCH ×2 (09:38→21:04)
[2017-07-14] MEDS: ASPIRIN 81 MG EC TABLET PO SCH (09:38)
[2017-07-14 09:39] VITALS: BP 108/72
[2017-07-14 11:40] VITALS: BP 129/78
[2017-07-14] MEDS ORDERED: INFLUENZA VIRUS VACCINE QVS 2017-18 (3YR+)/PF 60 MCG/0.5 ML SYRINGE IM ONE (12:00)
[2017-07-14] MEDS ORDERED: RAPID SEQUENCE KIT [RSI] 1 EACH KIT ONE ×2 (13:31)
[2017-07-14] MEDS ORDERED: SUCCINYLCHOLINE CHLORIDE 20 MG/ML 10 ML VIAL ONE (13:32)
[2017-07-14] MEDS ORDERED: SODIUM CHLORIDE 0.9% 250 ML IV ONE (13:44)
[2017-07-14 15:30] VITALS: BP 115/59
[2017-07-14 16:57] LABS: ALLEN TEST, BLOOD GAS Positive; TEMPERATURE, FAHRENHEIT, BG 98.6 FAHREN (96.0-98.6)
[2017-07-14 16:58] LABS: ABG PCO2 50 mmHg (35-45); ABG PH 7.446 (7.35-7.450)
[2017-07-14 17:00] LABS: ABG BASE EXCESS 9.7 mmol/L (-2.0-3.0); ABG HCO3 32.3 mmol/L (22.0-26.0); ABG OXYHEMOGLOBIN 92.4 % (94.0-100.0)
[2017-07-14 17:01] LABS: ABG A-A DIFF O2 69.5 mmHg (10-20.0)
[2017-07-14 18:20] LABS: IPAP, BG 16 cm H2O
[2017-07-14 19:45] VITALS: BP 106/73
[2017-07-14 23:36] VITALS: BP 95/71
[2017-07-15] VITALS (7 sets, daily range): BP systolic 107–147; BP diastolic 53–73
[2017-07-15] MEDS: CIPROFLOXACIN 400 MG/D5% WATER 200 ML IV SCH ×2 (01:08→14:23)
[2017-07-15] MEDS: LEVOTHYROXINE SODIUM 25 MCG TABLET PO SCH (05:35)
[2017-07-15 05:58] LABS: GLUCOSE,POINT OF CARE 130 MG/DL (70-110)
[2017-07-15 08:29] LABS: ALANINE AMINOTRANSFERASE 14 U/L (12-78); ANION GAP 2 mmol/L (8-16); ASPARTATE AMINOTRANSFERASE 12 U/L (15-37); BILIRUBIN,TOTAL 0.3 mg/dL (0.1-1.0); CALCIUM, TOTAL 9.2 mg/dL (8.8-10.5); CARBON DIOXIDE 37 mmol/L (22-29); CHLORIDE 98 mmol/L (98-107); CREATININE 0.57 mg/dL (0.60-1.30); GLOMERULAR FILTR. RATE CALC > 60 mL/min (>60); POTASSIUM 4.3 mmol/L (3.5-5.1); SODIUM SERUM 137 mmol/L (136-145); TOTAL PROTEIN, SERUM 6.7 g/dL (6.4-8.2); UREA NITROGEN, BLOOD 8 mg/dL (7-18)
[2017-07-15] MEDS: HEPARIN SODIUM,PORCINE 5,000 UNITS/ML VIAL SQ SCH ×2 (08:35→21:41)
[2017-07-15] MEDS: SIMVASTATIN 20 MG TABLET PO SCH (08:35)
[2017-07-15] MEDS: METOPROLOL TARTRATE 25 MG TABLET PO SCH ×2 (08:35→21:00)
[2017-07-15] MEDS: PANTOPRAZOLE SODIUM 40 MG DR TABLET PO SCH (08:35)
[2017-07-15] MEDS: MULTIVITAMINS, THERAPEUTIC TABLET PO SCH (08:35)
[2017-07-15] MEDS: LISINOPRIL 5 MG TABLET PO SCH (08:35)
[2017-07-15] MEDS: CHOLECALCIFEROL (VIT D3) 1,000 UNITS TABLET PO SCH (08:36)
[2017-07-15] MEDS: CLOPIDOGREL BISULFATE 75 MG TABLET PO SCH (08:36)
[2017-07-15] MEDS: ASPIRIN 81 MG EC TABLET PO SCH (08:36)
[2017-07-15 08:45] LABS: BASOPHILS % (AUTO) 0.3 % (0.0-2.0); EOSINOPHILS % (AUTO) 2.5 % (1.0-6.0); HEMATOCRIT 26.2 % (36-46); HEMOGLOBIN 8.8 g/dL (12.0-16.0); LYMPHOCYTES # (AUTO) 1.1 K/uL (1.0-4.8); LYMPHOCYTES % (AUTO) 20.3 % (22.0-44.0); MEAN CORPUSCULAR HEMOGLOBIN 34.6 pg (26.0-34.0); MEAN CORPUSCULAR HGB CONC 33.5 G/dL (31.0-37.0); MEAN CORPUSCULAR VOLUME 103 fL (80-100); MONOCYTES # (AUTO) 0.7 K/uL (0.1-1.0); MONOCYTES % (AUTO) 11.7 % (2.0-9.0); NEUTROPHILS # (AUTO) 3.7 K/uL (1.8-7.7); NEUTROPHILS % (AUTO) 65.2 % (40.0-70.0); PLATELET COUNT (AUTO) 282 K/uL (150-450); RED BLOOD CELL COUNT(AUTO) 2.53 MIL/uL (4.00-5.20); RED CELL DISTRIBUTION WIDTH 14.8 % (11.5-14.5); WHITE BLOOD COUNT (AUTO) 5.6 K/uL (4.5-11.0)
[2017-07-15 11:23] LABS: RBC MORPHOLOGY COMMENT ABNORMAL RBC MORPH
[2017-07-16] MEDS: CIPROFLOXACIN 400 MG/D5% WATER 200 ML IV SCH ×2 (02:02→14:42)
[2017-07-16 04:49] VITALS: BP 118/78
[2017-07-16] MEDS: LEVOTHYROXINE SODIUM 25 MCG TABLET PO SCH (05:43)
[2017-07-16 07:13] VITALS: BP 111/61
[2017-07-16] MEDS: LISINOPRIL 5 MG TABLET PO SCH (09:07)
[2017-07-16] MEDS: CLOPIDOGREL BISULFATE 75 MG TABLET PO SCH (09:07)
[2017-07-16] MEDS: MULTIVITAMINS, THERAPEUTIC TABLET PO SCH (09:07)
[2017-07-16] MEDS: PANTOPRAZOLE SODIUM 40 MG DR TABLET PO SCH (09:07)
[2017-07-16] MEDS: CHOLECALCIFEROL (VIT D3) 1,000 UNITS TABLET PO SCH (09:07)
[2017-07-16] MEDS: METOPROLOL TARTRATE 25 MG TABLET PO SCH ×2 (09:07→20:12)
[2017-07-16] MEDS: SIMVASTATIN 20 MG TABLET PO SCH (09:07)
[2017-07-16] MEDS: ASPIRIN 81 MG EC TABLET PO SCH (09:07)
[2017-07-16] MEDS: HEPARIN SODIUM,PORCINE 5,000 UNITS/ML VIAL SQ SCH ×2 (09:08→20:12)
[2017-07-16 11:03] VITALS: BP 155/69
[2017-07-16] MEDS ORDERED: POTASSIUM CHLORIDE 20 MEQ ER TABLET PO PRN (14:45)
[2017-07-16 16:12] LABS: APPEARANCE,URINE CLOUDY (CLEAR); GLUCOSE, URINE (UA) NEGATIVE (NEGATIVE); KETONES,URINE NEGATIVE (NEGATIVE); LEUKOCYTE ESTERASE ,URINE TRACE (NEGATIVE); OCCULT BLOOD,URINE LARGE (NEGATIVE); PH,URINE 8.5 (5.0-8.0); PROTEIN,URINE TRACE (NEGATIVE)
[2017-07-16 16:21] LABS: ADD UA MICROSCOPIC YES
[2017-07-16 16:22] LABS: RBC,URINE >100 /HPF (0-2)
[2017-07-16 16:24] LABS: SQUAMOUS EPITHELIAL CELL,UR Rare /LPF (None Seen)
[2017-07-16 16:43] VITALS: BP 125/62
[2017-07-16] MEDS ORDERED: INFLUENZA VIRUS VACCINE QVS 2017-18 (3YR+)/PF 60 MCG/0.5 ML SYRINGE IM ONE (17:15)
[2017-07-16 19:26] VITALS: BP 156/70
[2017-07-16 23:38] VITALS: BP 135/68
[2017-07-17] MEDS ORDERED: SODIUM CHLORIDE 0.9% 250 ML IV ONE (02:10)
[2017-07-17] MEDS: CIPROFLOXACIN 400 MG/D5% WATER 200 ML IV SCH (02:14)
[2017-07-17 04:51] VITALS: BP 140/84
[2017-07-17] MEDS: LEVOTHYROXINE SODIUM 25 MCG TABLET PO SCH (06:30)
[2017-07-17 08:25] VITALS: BP 136/103
[2017-07-17] MEDS: LISINOPRIL 5 MG TABLET PO SCH (08:56)
[2017-07-17] MEDS: SIMVASTATIN 20 MG TABLET PO SCH (08:56)
[2017-07-17] MEDS: METOPROLOL TARTRATE 25 MG TABLET PO SCH (08:56)
[2017-07-17] MEDS: HEPARIN SODIUM,PORCINE 5,000 UNITS/ML VIAL SQ SCH (08:56)
[2017-07-17] MEDS: PANTOPRAZOLE SODIUM 40 MG DR TABLET PO SCH (08:56)
[2017-07-17] MEDS: CLOPIDOGREL BISULFATE 75 MG TABLET PO SCH (08:56)
[2017-07-17] MEDS: ASPIRIN 81 MG EC TABLET PO SCH (08:56)
[2017-07-17] MEDS: MULTIVITAMINS, THERAPEUTIC TABLET PO SCH (08:56)
[2017-07-17] MEDS: CHOLECALCIFEROL (VIT D3) 1,000 UNITS TABLET PO SCH (08:56)
[2017-07-17 09:20] VITALS: BP 135/69
== END 2017-07-17 11:30 | DRG 91 ==
LOC: EMS 21:56 → 5N 07-14 05:06
PROVIDERS: ADMIT Internal Medicine; ATTEND Internal Medicine
PROC: 5A09357 Assistance with Respiratory Ventilation, Less than 24 Consecutive Hours, Continuous Positive Airway Pressure (ICD-10-PCS; principal; 2017-07-14)
DX: G92 Toxic encephalopathy (principal); J96.01 Acute respiratory failure with hypoxia; E43 Unspecified severe protein-calorie malnutrition; J96.02 Acute respiratory failure with hypercapnia; D53.9 Nutritional anemia, unspecified; E11.9 Type 2 diabetes mellitus without complications; E03.9 Hypothyroidism, unspecified; E78.5 Hyperlipidemia, unspecified; J98.11 Atelectasis; N39.0 Urinary tract infection, site not specified; I10 Essential (primary) hypertension; I25.10 Atherosclerotic heart disease of native coronary artery without angina pectoris; K21.9 Gastro-esophageal reflux disease without esophagitis; M19.90 Unspecified osteoarthritis, unspecified site; F03.90 Unspecified dementia, unspecified severity, without behavioral disturbance, psychotic disturbance, mood disturbance, and anxiety; J44.9 Chronic obstructive pulmonary disease, unspecified; Z66 Do not resuscitate; R62.7 Adult failure to thrive; Z22.322 Carrier or suspected carrier of Methicillin resistant Staphylococcus aureus; Z28.21 Immunization not carried out because of patient refusal; Z88.0 Allergy status to penicillin; Z86.73 Personal history of transient ischemic attack (TIA), and cerebral infarction without residual deficits; Z91.013 Allergy to seafood
CPT/HCPCS: 70496; 82805; 82962; 83735; 84100; 87040; 87081; 87086; 93005; 94640; 94660; 96365; 96375; 99291; J0330; J0696; J0744; J1644; J2250; J3490; J7050

== ENCOUNTER 2017-07-18 20:15 | Emergency (ER) | payer MEDICARE ==
[~2017-07-18] VITALS: Ht 152.4 cm; Wt 54.0 kg
[~2017-07-18 20:15] MED LIST changes: +ALPR0.5T8 PO; +CLON-570 PO; +CLOP75 PO; -HEPA500018 SQ; -LEVO500P7 IV; +MULT1TAB70 PO; +NITR.4 SL; +VITAD1000 PO
[2017-07-18 21:06] LABS: BASOPHILS % (AUTO) 0.3 % (0.0-2.0); EOSINOPHILS % (AUTO) 3.2 % (1.0-6.0); HEMATOCRIT 31.7 % (36-46); HEMOGLOBIN 10.6 g/dL (12.0-16.0); LYMPHOCYTES # (AUTO) 1.2 K/uL (1.0-4.8); MEAN CORPUSCULAR HEMOGLOBIN 34.7 pg (26.0-34.0); MEAN CORPUSCULAR HGB CONC 33.4 G/dL (31.0-37.0); MEAN CORPUSCULAR VOLUME 104 fL (80-100); MONOCYTES # (AUTO) 0.8 K/uL (0.1-1.0); NEUTROPHILS # (AUTO) 3.7 K/uL (1.8-7.7); NEUTROPHILS % (AUTO) 62.5 % (40.0-70.0); PLATELET COUNT (AUTO) 340 K/uL (150-450); RED BLOOD CELL COUNT(AUTO) 3.05 MIL/uL (4.00-5.20); RED CELL DISTRIBUTION WIDTH 14.7 % (11.5-14.5); WHITE BLOOD COUNT (AUTO) 5.9 K/uL (4.5-11.0)
[2017-07-18 21:13] LABS: INR 1.1 (0.9-1.1); PROTHROMBIN TIME 11.1 SEC (9.4-11.6)
[2017-07-18 21:19] LABS: ANION GAP 5 mmol/L (8-16); CALCIUM, TOTAL 9.3 mg/dL (8.8-10.5); CARBON DIOXIDE 34 mmol/L (22-29); CHLORIDE 100 mmol/L (98-107); CREATININE 0.69 mg/dL (0.60-1.30); GLOMERULAR FILTR. RATE CALC > 60 mL/min (>60); POTASSIUM 4.3 mmol/L (3.5-5.1); SODIUM SERUM 139 mmol/L (136-145); UREA NITROGEN, BLOOD 19 mg/dL (7-18)
[2017-07-18 21:27] LABS: AMMONIA 20 umol/L (11-32); B-TYPE NATRIURETIC PEPTIDE 30 pg/mL (0-100); LACTIC ACID 1.2 mmol/L (0.4-2.0)
[2017-07-18 21:39] LABS: RBC MORPHOLOGY COMMENT ABNORMAL RBC MORPH
[2017-07-18 21:40] LABS: TROPONIN I < 0.02 ng/mL (0.00-0.05)
[2017-07-18 21:43] LABS: ALANINE AMINOTRANSFERASE 16 U/L (12-78); ALBUMIN 3.3 g/dL (3.4-5.0); ASPARTATE AMINOTRANSFERASE 14 U/L (15-37); BILIRUBIN,TOTAL 0.2 mg/dL (0.1-1.0); CREATINE KINASE MB 1.5 ng/mL (0-5); CREATINE KINASE, TOTAL 95 U/L (26-192); TOTAL PROTEIN, SERUM 7.7 g/dL (6.4-8.2)
[2017-07-18 22:50] VITALS: BP 102/68
== END 2017-07-18 23:16 | disposition home or self-care (01) ==
LOC: EMS 20:16
DX: F03.90 Unspecified dementia, unspecified severity, without behavioral disturbance, psychotic disturbance, mood disturbance, and anxiety (principal); E11.9 Type 2 diabetes mellitus without complications; F32.9 Major depressive disorder, single episode, unspecified; I10 Essential (primary) hypertension; J44.9 Chronic obstructive pulmonary disease, unspecified; I20.9 Angina pectoris, unspecified; F41.9 Anxiety disorder, unspecified; Z86.73 Personal history of transient ischemic attack (TIA), and cerebral infarction without residual deficits; Z88.0 Allergy status to penicillin; Z91.013 Allergy to seafood
CPT/HCPCS: 82962; 83605; 87040; 93005; 99285

== ENCOUNTER 2017-07-28 01:06 | Inpatient (IN) | payer MEDICARE ==
[~2017-07-28] VITALS: Ht 152.4 cm; Wt 42.5 kg
[2017-07-28] MEDS ORDERED: LEVO500 PO (01:41)
[2017-07-28] MEDS ORDERED: SODIUM CHLORIDE 0.9% 500 ML IV ONE ×2 (01:45→03:15)
[2017-07-28 02:21] LABS: HEMATOCRIT 29.9 % (36-46); MEAN CORPUSCULAR HEMOGLOBIN 34.7 pg (26.0-34.0); MEAN CORPUSCULAR HGB CONC 33.5 G/dL (31.0-37.0); MEAN CORPUSCULAR VOLUME 104 fL (80-100); PLATELET COUNT (AUTO) 209 K/uL (150-450); RED BLOOD CELL COUNT(AUTO) 2.89 MIL/uL (4.00-5.20); WHITE BLOOD COUNT (AUTO) 6.3 K/uL (4.5-11.0)
[2017-07-28 02:25] LABS: PROTHROMBIN TIME 10.6 SEC (9.4-11.6)
[2017-07-28] MEDS ORDERED: CEFEPIME HCL 1 GM in DEXTROSE 5%-WATER 50 ML IV ONE (02:45)
[2017-07-28 02:46] LABS: CALCIUM, TOTAL 8.8 mg/dL (8.8-10.5); CREATININE 1.48 mg/dL (0.60-1.30); POTASSIUM 4.6 mmol/L (3.5-5.1)
[2017-07-28 02:51] LABS: BILIRUBIN,TOTAL 0.2 mg/dL (0.1-1.0); TOTAL PROTEIN, SERUM 7.1 g/dL (6.4-8.2)
[2017-07-28 02:56] LABS: INFLUENZA TYPE B NEGATIVE FOR TYPE B (NEGATIVE)
[2017-07-28] MEDS ORDERED: VANCOMYCIN HCL 1 GM/D5% WATER 200 ML IV ONE (03:00)
[2017-07-28 03:19] LABS: BAND NEUTROPHILS % (MANUAL) 40 % (1-5); LYMPHOCYTES % (MANUAL) 10 % (22-44); METAMYELOCYTES % 12 % (0-0); RBC MORPHOLOGY COMMENT ABNORMAL R; TOTAL CELLS COUNTED 100
[2017-07-28] MEDS ORDERED: ACETAMINOPHEN 325 MG TABLET PO PRN (03:30)
[2017-07-28] MEDS ORDERED: 0.9% SODIUM CHLORIDE 10 ML SYRINGE IVP PRN ×2 (03:30→04:45)
[2017-07-28] MEDS ORDERED: ONDANSETRON HCL 4 MG/2 ML VIAL IVP PRN ×2 (03:30→04:45)
[2017-07-28] MEDS ORDERED: OSELTAMIVIR PHOSPHATE 30 MG CAPSULE PO ONE (03:30)
[2017-07-28 03:56] LABS: ABG A-A DIFF O2 220.4 mmHg (10-20.0); ABG HCO3 28.8 mmol/L (22.0-26.0); ABG OXYHEMOGLOBIN 89.5 % (94.0-100.0); ABG PCO2 61 mmHg (35-45); ABG PH 7.336 (7.35-7.450); ALLEN TEST, BLOOD GAS POSITIVE; TEMPERATURE, FAHRENHEIT, BG 100.2 FAHREN (96.0-98.6)
[2017-07-28 03:57] LABS: IPAP, BG 12 cm H2O
[2017-07-28] MEDS ORDERED: NITROGLYCERIN 0.4 MG SUBLINGUAL TABLET #25 SL PRN (04:30)
[2017-07-28] MEDS ORDERED: *CLINICAL-CEFEPIME DOSING CLINICAL ONE ×2 (04:30)
[2017-07-28 04:45] VITALS: BP 111/32
[2017-07-28] MEDS ORDERED: VANCOMYCIN HCL 1 GM/D5% WATER 200 ML IV PRN (04:45)
[2017-07-28] MEDS ORDERED: MAGNESIUM HYDROXIDE SUSPENSION 30 ML UDCUP PO PRN (04:45)
[2017-07-28] MEDS ORDERED: ALBUTEROL SULFATE 2.5 MG/0.5 ML NEB SOLUTION NEB PRN (04:45)
[2017-07-28] MEDS ORDERED: IPRATROPIUM BROMIDE 0.5 MG/2.5 ML NEB SOLUTION NEB PRN (04:45)
[2017-07-28 05:09] LABS: HEMATOCRIT 28.5 % (36-46); HEMOGLOBIN 9.4 g/dL (12.0-16.0); MEAN CORPUSCULAR HEMOGLOBIN 34.1 pg (26.0-34.0); MEAN CORPUSCULAR HGB CONC 32.9 G/dL (31.0-37.0); MEAN CORPUSCULAR VOLUME 104 fL (80-100); PLATELET COUNT (AUTO) 176 K/uL (150-450); RED BLOOD CELL COUNT(AUTO) 2.75 MIL/uL (4.00-5.20); RED CELL DISTRIBUTION WIDTH 14.8 % (11.5-14.5); WHITE BLOOD COUNT (AUTO) 6.1 K/uL (4.5-11.0)
[2017-07-28 05:31] LABS: CALCIUM, TOTAL 8.3 mg/dL (8.8-10.5); CREATININE 1.34 mg/dL (0.60-1.30); POTASSIUM 4.9 mmol/L (3.5-5.1)
[2017-07-28 05:47] LABS: ALBUMIN 2.6 g/dL (3.4-5.0); BILIRUBIN,TOTAL 0.2 mg/dL (0.1-1.0); MAGNESIUM 2.4 mg/dL (1.80-2.40); THYROID STIMULATING HORMONE 2.31 uIU/mL (0.36-3.74); TOTAL PROTEIN, SERUM 6.4 g/dL (6.4-8.2)
[2017-07-28] MEDS ORDERED: RAPID SEQUENCE KIT [RSI] 1 EACH KIT ONE ×2 (06:04)
[2017-07-28] MEDS ORDERED: SUCCINYLCHOLINE CHLORIDE 20 MG/ML 10 ML VIAL ONE (06:05)
[2017-07-28 06:10] LABS: PROCALCITONIN (PCT) 1.09 ng/mL (<0.50)
[2017-07-28] MEDS ORDERED: ETOMIDATE 2 MG/ML 10 ML VIAL IVP ONE (06:45)
[2017-07-28] MEDS ORDERED: SUCCINYLCHOLINE CHLORIDE 20 MG/ML 10 ML VIAL IVP ONE (06:45)
[2017-07-28] MEDS: ALBUTEROL SULFATE 2.5 MG/0.5 ML NEB SOLUTION NEB SCH ×3 (07:47→19:30)
[2017-07-28] MEDS: IPRATROPIUM BROMIDE 0.5 MG/2.5 ML NEB SOLUTION NEB SCH ×3 (07:47→19:31)
[2017-07-28 07:54] LABS: BAND NEUTROPHILS % (MANUAL) 51 % (1-5); LYMPHOCYTES % (MANUAL) 10 % (22-44); METAMYELOCYTES % 8 % (0-0); RBC MORPHOLOGY COMMENT ABNORMAL RBC MORPH; TOTAL CELLS COUNTED 100
[2017-07-28 08:00] VITALS: BP 100/56
[2017-07-28 08:53] LABS: ABG BASE EXCESS 11.4 mmol/L (-2.0-3.0); ABG HCO3 33.7 mmol/L (22.0-26.0); ABG PCO2 60 mmHg (35-45); ABG PH 7.399 (7.35-7.450); ALLEN TEST, BLOOD GAS Positive; TEMPERATURE, FAHRENHEIT, BG 98.6 FAHREN (96.0-98.6)
[2017-07-28 08:54] LABS: ABG A-A DIFF O2 420.4 mmHg (10-20.0); ABG OXYHEMOGLOBIN 98.8 % (94.0-100.0)
[2017-07-28] MEDS: MULTIVITAMINS, THERAPEUTIC TABLET PO SCH (09:00)
[2017-07-28] MEDS: CLOPIDOGREL BISULFATE 75 MG TABLET PO SCH (09:03)
[2017-07-28] MEDS: DOCUSATE SODIUM 100 MG CAPSULE PO SCH ×2 (09:03→21:17)
[2017-07-28] MEDS: MethylPREDNISolone SOD SUCC 40 MG/ML VIAL IVP SCH ×2 (09:04→15:35)
[2017-07-28] MEDS: CHOLECALCIFEROL (VIT D3) 1,000 UNITS TABLET PO SCH (09:04)
[2017-07-28] MEDS: PANTOPRAZOLE SODIUM 40 MG/VIAL IVP SCH (09:04)
[2017-07-28] MEDS: ASPIRIN 81 MG EC TABLET PO SCH (09:04)
[2017-07-28] MEDS: HEPARIN SODIUM,PORCINE 5,000 UNITS/ML VIAL SQ SCH ×2 (09:04→21:18)
[2017-07-28 09:57] LABS: APPEARANCE,URINE CLOUDY (CLEAR); GLUCOSE, URINE (UA) NEGATIVE (NEGATIVE); KETONES,URINE NEGATIVE (NEGATIVE); LEUKOCYTE ESTERASE ,URINE NEGATIVE (NEGATIVE); OCCULT BLOOD,URINE NEGATIVE (NEGATIVE); PROTEIN,URINE NEGATIVE (NEGATIVE)
[2017-07-28 10:34] VITALS: BP 100/56
[2017-07-28 11:15] LABS: RBC,URINE None Seen /HPF (0-2); WBC,URINE 0-2 /HPF (0-5)
[2017-07-28 11:17] LABS: SQUAMOUS EPITHELIAL CELL,UR Moderate /LPF (None Seen)
[2017-07-28 12:00] VITALS: BP 107/62
[2017-07-28 12:04] LABS: ABG A-A DIFF O2 194.1 mmHg (10-20.0); ABG HCO3 30.6 mmol/L (22.0-26.0); ABG OXYHEMOGLOBIN 90.2 % (94.0-100.0); ABG PCO2 56 mmHg (35-45); ABG PH 7.391 (7.35-7.450); TEMPERATURE, FAHRENHEIT, BG 98.6 FAHREN (96.0-98.6)
[2017-07-28 12:11] LABS: ALLEN TEST, BLOOD GAS Positive
[2017-07-28] MEDS ORDERED: SODIUM CHLORIDE 0.9% 250 ML IV ONE (12:43)
[2017-07-28] MEDS ORDERED: HALOPERIDOL LACTATE 5 MG/ML VIAL IM PRN (12:45)
[2017-07-28] MEDS: ALBUMIN HUMAN 25%-12.5GM/50ML 50 ML IV SCH ×2 (13:25→21:17)
[2017-07-28] MEDS ORDERED: PROPOFOL 1000 MG/ISO-OSM 100 ML IV PRN (13:56)
[2017-07-28] MEDS ORDERED: PROPOFOL 1000 MG/ISO-OSM 100 ML IV ONE (13:58)
[2017-07-28] MEDS: HALOPERIDOL LACTATE 5 MG/ML VIAL IVP PRN (14:03)
[2017-07-28 15:42] LABS: GLUCOSE,POINT OF CARE 122 MG/DL (70-110)
[2017-07-28 16:00] VITALS: BP 126/80
[2017-07-28] MEDS: MIDAZOLAM HCL 100 MG in DEXTROSE 5%-WATER 180 ML IV PRN (17:21)
[2017-07-28] MEDS ORDERED: ETOMIDATE 2 MG/ML 10 ML VIAL IV ONE (17:52)
[2017-07-28] MEDS ORDERED: SUCCINYLCHOLINE CHLORIDE 20 MG/ML 10 ML VIAL IM ONE (17:52)
[2017-07-28 20:00] VITALS: BP 138/79
[2017-07-29] VITALS: BP 150/92
[2017-07-29] MEDS: MethylPREDNISolone SOD SUCC 40 MG/ML VIAL IVP SCH ×4 (00:29→23:52)
[2017-07-29] MEDS ORDERED: SODIUM CHLORIDE 0.9% 250 ML IV ONE ×3 (00:44→21:26)
[2017-07-29] MEDS: IPRATROPIUM BROMIDE 0.5 MG/2.5 ML NEB SOLUTION NEB SCH ×4 (01:42→19:29)
[2017-07-29] MEDS: ALBUTEROL SULFATE 2.5 MG/0.5 ML NEB SOLUTION NEB SCH ×4 (01:42→19:29)
[2017-07-29] MEDS ORDERED: DEXTROSE 50%-WATER 25 GM/50 ML SYRINGE IVP PRN (02:15)
[2017-07-29 04:00] VITALS: BP 151/65
[2017-07-29] MEDS: ALBUMIN HUMAN 25%-12.5GM/50ML 50 ML IV SCH ×3 (04:23→21:31)
[2017-07-29 05:14] LABS: HEMATOCRIT 25.8 % (36-46); HEMOGLOBIN 8.9 g/dL (12.0-16.0); MEAN CORPUSCULAR HEMOGLOBIN 34.6 pg (26.0-34.0); MEAN CORPUSCULAR HGB CONC 34.6 G/dL (31.0-37.0); MEAN CORPUSCULAR VOLUME 100 fL (80-100); PLATELET COUNT (AUTO) 173 K/uL (150-450); RED BLOOD CELL COUNT(AUTO) 2.57 MIL/uL (4.00-5.20); RED CELL DISTRIBUTION WIDTH 15.4 % (11.5-14.5); WHITE BLOOD COUNT (AUTO) 4.5 K/uL (4.5-11.0)
[2017-07-29 05:21] LABS: ANION GAP 7 mmol/L (8-16); CALCIUM, TOTAL 9.1 mg/dL (8.8-10.5); CARBON DIOXIDE 30 mmol/L (22-29); CHLORIDE 98 mmol/L (98-107); CREATININE 0.85 mg/dL (0.60-1.30); GLOMERULAR FILTR. RATE CALC > 60 mL/min (>60); POTASSIUM 4.5 mmol/L (3.5-5.1); SODIUM SERUM 135 mmol/L (136-145); UREA NITROGEN, BLOOD 40 mg/dL (7-18)
[2017-07-29 08:00] VITALS: BP 152/64
[2017-07-29] MEDS ORDERED: CEFEPIME HCL 0.5 GM in DEXTROSE 5%-WATER 50 ML IV SCH (08:00)
[2017-07-29] MEDS ORDERED: VANCOMYCIN HCL 1 GM/D5% WATER 200 ML IV SCH (08:00)
[2017-07-29] MEDS ORDERED: CEFEPIME HCL 1 GM in DEXTROSE 5%-WATER 50 ML IV SCH (08:15)
[2017-07-29] MEDS: PANTOPRAZOLE SODIUM 40 MG/VIAL IVP SCH (08:39)
[2017-07-29] MEDS: MULTIVITAMINS, THERAPEUTIC TABLET PO SCH (08:40)
[2017-07-29] MEDS: DOCUSATE SODIUM 100 MG CAPSULE PO SCH ×2 (08:40→21:31)
[2017-07-29] MEDS: CHOLECALCIFEROL (VIT D3) 1,000 UNITS TABLET PO SCH (08:40)
[2017-07-29] MEDS: HEPARIN SODIUM,PORCINE 5,000 UNITS/ML VIAL SQ SCH ×2 (08:40→21:32)
[2017-07-29] MEDS: ASPIRIN 81 MG EC TABLET PO SCH (08:41)
[2017-07-29] MEDS: CLOPIDOGREL BISULFATE 75 MG TABLET PO SCH (08:41)
[2017-07-29] MEDS ORDERED: OSELTAMIVIR PHOSPHATE 30 MG CAPSULE PO SCH (09:00)
[2017-07-29 12:00] VITALS: BP 152/62
[2017-07-29 12:05] LABS: RBC MORPHOLOGY COMMENT ABNORMAL R
[2017-07-29 12:15] LABS: BAND NEUTROPHILS % (MANUAL) 30 % (1-5); LYMPHOCYTES % (MANUAL) 3 % (22-44); TOTAL CELLS COUNTED 100; WBC MORPHOLOGY TOXIC GRANULATION
[2017-07-29] MEDS: INSULIN REGULAR, HUMAN 100 UNITS/ML SQ PRN ×2 (12:44→18:16)
[2017-07-29 15:43] LABS: GLUCOSE COMMENT 1 Received Meds; GLUCOSE,POINT OF CARE 207 MG/DL (70-110)
[2017-07-29 16:00] VITALS: BP 123/53
[2017-07-29 20:00] VITALS: BP 125/52
[2017-07-29] MEDS: DOXYCYCLINE 100 MG CAPSULE PO SCH (21:32)
[2017-07-29] MEDS: OSELTAMIVIR PHOSPHATE 30 MG CAPSULE PO SCH (21:32)
[2017-07-29] MEDS: CefTRIAXone 1 GM/DEXTROSE 50 ML IV SCH (23:52)
[2017-07-29] MEDS: MetroNIDAZOLE 500 MG TABLET PO SCH (23:52)
[2017-07-30] VITALS: BP 128/53
[2017-07-30] MEDS: INSULIN REGULAR, HUMAN 100 UNITS/ML SQ PRN ×5 (00:19→23:30)
[2017-07-30] MEDS: IPRATROPIUM BROMIDE 0.5 MG/2.5 ML NEB SOLUTION NEB SCH ×4 (01:47→20:11)
[2017-07-30] MEDS: ALBUTEROL SULFATE 2.5 MG/0.5 ML NEB SOLUTION NEB SCH ×4 (01:47→20:11)
[2017-07-30] MEDS: ALBUMIN HUMAN 25%-12.5GM/50ML 50 ML IV SCH ×3 (03:49→20:04)
[2017-07-30] MEDS: MIDAZOLAM HCL 100 MG in DEXTROSE 5%-WATER 180 ML IV PRN (03:50)
[2017-07-30 04:00] VITALS: BP 119/46
[2017-07-30 06:08] LABS: ANION GAP 6 mmol/L (8-16); CALCIUM, TOTAL 8.8 mg/dL (8.8-10.5); CARBON DIOXIDE 30 mmol/L (22-29); CHLORIDE 96 mmol/L (98-107); CREATININE 0.87 mg/dL (0.60-1.30); GLOMERULAR FILTR. RATE CALC > 60 mL/min (>60); POTASSIUM 4.3 mmol/L (3.5-5.1); SODIUM SERUM 132 mmol/L (136-145); UREA NITROGEN, BLOOD 46 mg/dL (7-18)
[2017-07-30 08:00] VITALS: BP 125/70
[2017-07-30] MEDS: PANTOPRAZOLE SODIUM 40 MG/VIAL IVP SCH (08:35)
[2017-07-30] MEDS: MetroNIDAZOLE 500 MG TABLET PO SCH ×3 (08:35→23:22)
[2017-07-30] MEDS: MethylPREDNISolone SOD SUCC 40 MG/ML VIAL IVP SCH ×3 (08:35→23:22)
[2017-07-30] MEDS: DOCUSATE SODIUM 100 MG CAPSULE PO SCH ×2 (08:36→20:04)
[2017-07-30] MEDS: ASPIRIN 81 MG EC TABLET PO SCH (08:36)
[2017-07-30] MEDS: CLOPIDOGREL BISULFATE 75 MG TABLET PO SCH (08:36)
[2017-07-30] MEDS: CHOLECALCIFEROL (VIT D3) 1,000 UNITS TABLET PO SCH (08:37)
[2017-07-30] MEDS: DOXYCYCLINE 100 MG CAPSULE PO SCH ×2 (08:37→20:05)
[2017-07-30] MEDS: MULTIVITAMINS, THERAPEUTIC TABLET PO SCH (08:37)
[2017-07-30] MEDS: HEPARIN SODIUM,PORCINE 5,000 UNITS/ML VIAL SQ SCH ×2 (08:37→20:06)
[2017-07-30 09:21] LABS: ORGANISM ID Not indicated.
[2017-07-30] MEDS: OSELTAMIVIR PHOSPHATE 30 MG CAPSULE PO SCH ×2 (09:47→20:04)
[2017-07-30 12:00] VITALS: BP 153/68
[2017-07-30 12:42] LABS: GLUCOSE COMMENT 1 Received Meds; GLUCOSE,POINT OF CARE 326 MG/DL (70-110)
[2017-07-30 12:42] LABS: GLUCOSE COMMENT 1 Received Meds; GLUCOSE,POINT OF CARE 243 MG/DL (70-110)
[2017-07-30 12:47] LABS: GLUCOSE COMMENT 1 Received Meds; GLUCOSE,POINT OF CARE 241 MG/DL (70-110)
[2017-07-30 16:00] VITALS: BP 139/67
[2017-07-30 20:00] VITALS: BP 115/68
[2017-07-30 21:27] LABS: MYCOPLASMA AB IGG 1210 U/mL (0-99)
[2017-07-30] MEDS ORDERED: INFLUENZA VIRUS VACCINE QVS 2017-18 (3YR+)/PF 60 MCG/0.5 ML SYRINGE IM ONE (22:45)
[2017-07-30] MEDS ORDERED: PNEUMOCOCCAL VACCINE POLYVALENT 0.5 ML VIAL [PPSV23] IM ONE (22:45)
[2017-07-30] MEDS: CefTRIAXone 1 GM/DEXTROSE 50 ML IV SCH (23:19)
[2017-07-30 23:37] LABS: GLUCOSE COMMENT 1 Received Meds; GLUCOSE,POINT OF CARE 245 MG/DL (70-110)
[2017-07-30 23:37] LABS: GLUCOSE,POINT OF CARE 133 MG/DL (70-110)
[2017-07-31] VITALS (7 sets, daily range): BP systolic 104–113; BP diastolic 37–59
[2017-07-31 01:52] LABS: GLUCOSE COMMENT 1 Received Meds; GLUCOSE,POINT OF CARE 202 MG/DL (70-110)
[2017-07-31] MEDS: IPRATROPIUM BROMIDE 0.5 MG/2.5 ML NEB SOLUTION NEB SCH ×4 (02:04→20:59)
[2017-07-31] MEDS: ALBUTEROL SULFATE 2.5 MG/0.5 ML NEB SOLUTION NEB SCH ×4 (02:04→20:59)
[2017-07-31] MEDS: MIDAZOLAM HCL 100 MG in DEXTROSE 5%-WATER 180 ML IV PRN (03:27)
[2017-07-31] MEDS: ALBUMIN HUMAN 25%-12.5GM/50ML 50 ML IV SCH ×3 (04:27→20:21)
[2017-07-31] MEDS: INSULIN REGULAR, HUMAN 100 UNITS/ML SQ PRN ×4 (04:58→23:22)
[2017-07-31 05:53] LABS: HEMATOCRIT 26.4 % (36-46); HEMOGLOBIN 8.9 g/dL (12.0-16.0); MEAN CORPUSCULAR HGB CONC 33.6 G/dL (31.0-37.0); MEAN CORPUSCULAR VOLUME 101 fL (80-100); PLATELET COUNT (AUTO) 151 K/uL (150-450); RED BLOOD CELL COUNT(AUTO) 2.62 MIL/uL (4.00-5.20)
[2017-07-31 06:02] LABS: ANION GAP 6 mmol/L (8-16); CALCIUM, TOTAL 9.1 mg/dL (8.8-10.5); CARBON DIOXIDE 32 mmol/L (22-29); CHLORIDE 96 mmol/L (98-107); CREATININE 0.84 mg/dL (0.60-1.30); GLOMERULAR FILTR. RATE CALC > 60 mL/min (>60); POTASSIUM 4.6 mmol/L (3.5-5.1); SODIUM SERUM 134 mmol/L (136-145); UREA NITROGEN, BLOOD 41 mg/dL (7-18)
[2017-07-31] MEDS: MethylPREDNISolone SOD SUCC 40 MG/ML VIAL IVP SCH ×3 (08:44→23:08)
[2017-07-31] MEDS: DOCUSATE SODIUM 100 MG CAPSULE PO SCH ×2 (08:44→20:21)
[2017-07-31] MEDS: MetroNIDAZOLE 500 MG TABLET PO SCH ×3 (08:44→23:08)
[2017-07-31] MEDS: PANTOPRAZOLE SODIUM 40 MG/VIAL IVP SCH (08:44)
[2017-07-31] MEDS: HEPARIN SODIUM,PORCINE 5,000 UNITS/ML VIAL SQ SCH ×2 (08:45→20:22)
[2017-07-31] MEDS: OSELTAMIVIR PHOSPHATE 30 MG CAPSULE PO SCH ×2 (08:45→20:21)
[2017-07-31] MEDS: CHOLECALCIFEROL (VIT D3) 1,000 UNITS TABLET PO SCH (08:45)
[2017-07-31] MEDS: CLOPIDOGREL BISULFATE 75 MG TABLET PO SCH (08:45)
[2017-07-31] MEDS: DOXYCYCLINE 100 MG CAPSULE PO SCH ×2 (08:45→20:21)
[2017-07-31] MEDS: ASPIRIN 81 MG EC TABLET PO SCH (08:45)
[2017-07-31] MEDS: MULTIVITAMINS, THERAPEUTIC TABLET PO SCH (08:45)
[2017-07-31 09:10] LABS: BAND NEUTROPHILS % (MANUAL) 46 % (1-5); LYMPHOCYTES % (MANUAL) 12 % (22-44); REACTIVE LYMPHOCYTES 1 % (0-0); TOTAL CELLS COUNTED 100
[2017-07-31] MEDS ORDERED: SODIUM CHLORIDE 0.9% 250 ML IV ONE (12:39)
[2017-07-31] MEDS: ACETAMINOPHEN 325 MG TABLET PO PRN (12:41)
[2017-07-31] MEDS: BISACODYL 10 MG RECTAL RECTAL SUPPOSITORY PR PRN (12:42)
[2017-07-31] MEDS: LORazepam 2 MG/ML VIAL IVP PRN (17:10)
[2017-07-31 20:48] LABS: GLUCOSE COMMENT 1 Received Meds; GLUCOSE,POINT OF CARE 192 MG/DL (70-110)
[2017-07-31 20:49] LABS: GLUCOSE COMMENT 1 Received Meds; GLUCOSE,POINT OF CARE 198 MG/DL (70-110)
[2017-07-31 20:49] LABS: GLUCOSE COMMENT 1 Received Meds; GLUCOSE,POINT OF CARE 192 MG/DL (70-110)
[2017-07-31] MEDS: CefTRIAXone 1 GM/DEXTROSE 50 ML IV SCH (23:02)
[2017-08-01] VITALS: BP 103/58
[2017-08-01] MEDS: IPRATROPIUM BROMIDE 0.5 MG/2.5 ML NEB SOLUTION NEB SCH ×5 (01:07→19:30)
[2017-08-01] MEDS: ALBUTEROL SULFATE 2.5 MG/0.5 ML NEB SOLUTION NEB SCH ×5 (01:07→19:30)
[2017-08-01] MEDS: LORazepam 2 MG/ML VIAL IVP PRN ×2 (01:33→12:22)
[2017-08-01 04:00] VITALS: BP 109/52
[2017-08-01] MEDS: ALBUMIN HUMAN 25%-12.5GM/50ML 50 ML IV SCH ×3 (04:19→20:11)
[2017-08-01 04:42] LABS: HEMOGLOBIN 8.6 g/dL (12.0-16.0); MEAN CORPUSCULAR HEMOGLOBIN 33.8 pg (26.0-34.0); MEAN CORPUSCULAR HGB CONC 33.1 G/dL (31.0-37.0); MEAN CORPUSCULAR VOLUME 102 fL (80-100); PLATELET COUNT (AUTO) 157 K/uL (150-450); RED BLOOD CELL COUNT(AUTO) 2.55 MIL/uL (4.00-5.20); RED CELL DISTRIBUTION WIDTH 15.7 % (11.5-14.5); WHITE BLOOD COUNT (AUTO) 3.4 K/uL (4.5-11.0)
[2017-08-01] MEDS: INSULIN REGULAR, HUMAN 100 UNITS/ML SQ PRN ×4 (04:54→23:44)
[2017-08-01 04:59] LABS: ANION GAP 6 mmol/L (8-16); CARBON DIOXIDE 31 mmol/L (22-29); CHLORIDE 97 mmol/L (98-107); CREATINE KINASE, TOTAL 69 U/L (26-192); CREATININE 0.73 mg/dL (0.60-1.30); GLOMERULAR FILTR. RATE CALC > 60 mL/min (>60); POTASSIUM 4.5 mmol/L (3.5-5.1); SODIUM SERUM 134 mmol/L (136-145); UREA NITROGEN, BLOOD 34 mg/dL (7-18)
[2017-08-01 05:00] LABS: B-TYPE NATRIURETIC PEPTIDE 286 pg/mL (0-100)
[2017-08-01 05:34] LABS: BAND NEUTROPHILS % (MANUAL) 36 % (1-5); LYMPHOCYTES % (MANUAL) 14 % (22-44); TOTAL CELLS COUNTED 100
[2017-08-01 05:35] LABS: RBC MORPHOLOGY COMMENT ABNORMAL RBC MORPH
[2017-08-01 06:44] LABS: GLUCOSE COMMENT 1 Received Meds; GLUCOSE,POINT OF CARE 226 MG/DL (70-110)
[2017-08-01 06:44] LABS: GLUCOSE COMMENT 1 Received Meds; GLUCOSE,POINT OF CARE 224 MG/DL (70-110)
[2017-08-01 08:00] VITALS: BP 120/79
[2017-08-01] MEDS: MethylPREDNISolone SOD SUCC 40 MG/ML VIAL IVP SCH ×3 (08:25→23:13)
[2017-08-01] MEDS: MetroNIDAZOLE 500 MG TABLET PO SCH ×3 (08:25→23:13)
[2017-08-01] MEDS: PANTOPRAZOLE SODIUM 40 MG/VIAL IVP SCH (08:25)
[2017-08-01] MEDS: OSELTAMIVIR PHOSPHATE 30 MG CAPSULE PO SCH ×2 (08:26→20:11)
[2017-08-01] MEDS: ASPIRIN 81 MG EC TABLET PO SCH (08:26)
[2017-08-01] MEDS: DOCUSATE SODIUM 100 MG CAPSULE PO SCH ×2 (08:26→20:11)
[2017-08-01] MEDS: DOXYCYCLINE 100 MG CAPSULE PO SCH ×2 (08:27→20:11)
[2017-08-01] MEDS: HEPARIN SODIUM,PORCINE 5,000 UNITS/ML VIAL SQ SCH ×2 (08:27→20:12)
[2017-08-01] MEDS: CHOLECALCIFEROL (VIT D3) 1,000 UNITS TABLET PO SCH (08:27)
[2017-08-01] MEDS: CLOPIDOGREL BISULFATE 75 MG TABLET PO SCH (08:35)
[2017-08-01] MEDS: MULTIVITAMINS, THERAPEUTIC TABLET PO SCH (08:35)
[2017-08-01 12:00] VITALS: BP 108/26
[2017-08-01 13:24] LABS: GLUCOSE,POINT OF CARE 171 MG/DL (70-110)
[2017-08-01 16:00] VITALS: BP 130/56
[2017-08-01 20:00] VITALS: BP 140/80
[2017-08-01] MEDS: CefTRIAXone 1 GM/DEXTROSE 50 ML IV SCH (23:04)
[2017-08-01] MEDS: HALOPERIDOL LACTATE 5 MG/ML VIAL IVP PRN (23:12)
[2017-08-02] VITALS: BP 118/72
[2017-08-02] MEDS ORDERED: SODIUM CHLORIDE 0.9% 250 ML IV ONE (00:31)
[2017-08-02] MEDS: LORazepam 2 MG/ML VIAL IVP PRN ×3 (00:34→23:14)
[2017-08-02] MEDS: IPRATROPIUM BROMIDE 0.5 MG/2.5 ML NEB SOLUTION NEB SCH ×4 (01:45→20:05)
[2017-08-02] MEDS: ALBUTEROL SULFATE 2.5 MG/0.5 ML NEB SOLUTION NEB SCH ×4 (01:46→20:05)
[2017-08-02 04:00] VITALS: BP 108/67
[2017-08-02] MEDS: ALBUMIN HUMAN 25%-12.5GM/50ML 50 ML IV SCH ×3 (04:30→19:58)
[2017-08-02 04:44] LABS: HEMATOCRIT 26.2 % (36-46); HEMOGLOBIN 8.7 g/dL (12.0-16.0); MEAN CORPUSCULAR HEMOGLOBIN 33.8 pg (26.0-34.0); MEAN CORPUSCULAR HGB CONC 33.2 G/dL (31.0-37.0); MEAN CORPUSCULAR VOLUME 102 fL (80-100); PLATELET COUNT (AUTO) 144 K/uL (150-450); RED BLOOD CELL COUNT(AUTO) 2.58 MIL/uL (4.00-5.20); RED CELL DISTRIBUTION WIDTH 15.8 % (11.5-14.5); WHITE BLOOD COUNT (AUTO) 3.3 K/uL (4.5-11.0)
[2017-08-02 04:48] LABS: ANION GAP 6 mmol/L (8-16); CARBON DIOXIDE 30 mmol/L (22-29); CHLORIDE 101 mmol/L (98-107); CREATININE 0.72 mg/dL (0.60-1.30); GLOMERULAR FILTR. RATE CALC > 60 mL/min (>60); POTASSIUM 4.3 mmol/L (3.5-5.1); SODIUM SERUM 137 mmol/L (136-145); UREA NITROGEN, BLOOD 34 mg/dL (7-18)
[2017-08-02] MEDS: INSULIN REGULAR, HUMAN 100 UNITS/ML SQ PRN ×3 (05:29→18:19)
[2017-08-02 05:35] LABS: GLUCOSE,POINT OF CARE 162 MG/DL (70-110)
[2017-08-02 05:35] LABS: GLUCOSE COMMENT 1 Received Meds; GLUCOSE,POINT OF CARE 185 MG/DL (70-110)
[2017-08-02 05:35] LABS: GLUCOSE COMMENT 1 Received Meds; GLUCOSE,POINT OF CARE 188 MG/DL (70-110)
[2017-08-02 05:42] LABS: BAND NEUTROPHILS % (MANUAL) 67 % (1-5); LYMPHOCYTES % (MANUAL) 24 % (22-44); METAMYELOCYTES % 1 % (0-0); TOTAL CELLS COUNTED 100
[2017-08-02 05:43] LABS: RBC MORPHOLOGY COMMENT ABNORMAL RBC MORPH
[2017-08-02] MEDS: DOXYCYCLINE 100 MG CAPSULE PO SCH ×2 (07:56→21:04)
[2017-08-02] MEDS: CLOPIDOGREL BISULFATE 75 MG TABLET PO SCH (07:57)
[2017-08-02] MEDS: ASPIRIN 81 MG EC TABLET PO SCH (07:57)
[2017-08-02] MEDS: MULTIVITAMINS, THERAPEUTIC TABLET PO SCH (07:57)
[2017-08-02] MEDS: PANTOPRAZOLE SODIUM 40 MG/VIAL IVP SCH (07:57)
[2017-08-02] MEDS: DOCUSATE SODIUM 100 MG CAPSULE PO SCH ×2 (07:57→21:04)
[2017-08-02] MEDS: OSELTAMIVIR PHOSPHATE 30 MG CAPSULE PO SCH ×2 (07:57→21:57)
[2017-08-02] MEDS: CHOLECALCIFEROL (VIT D3) 1,000 UNITS TABLET PO SCH (07:57)
[2017-08-02] MEDS: ACETAMINOPHEN 325 MG TABLET PO PRN (07:58)
[2017-08-02] MEDS: MethylPREDNISolone SOD SUCC 40 MG/ML VIAL IVP SCH ×3 (07:58→23:11)
[2017-08-02] MEDS: MetroNIDAZOLE 500 MG TABLET PO SCH ×3 (07:58→23:12)
[2017-08-02] MEDS: HEPARIN SODIUM,PORCINE 5,000 UNITS/ML VIAL SQ SCH ×2 (07:59→21:04)
[2017-08-02 08:00] VITALS: BP 141/64
[2017-08-02 12:00] VITALS: BP 109/58
[2017-08-02 14:18] LABS: GLUCOSE COMMENT 1 Received Meds; GLUCOSE,POINT OF CARE 212 MG/DL (70-110)
[2017-08-02 16:00] VITALS: BP 106/64
[2017-08-02 19:22] LABS: GLUCOSE,POINT OF CARE 172 MG/DL (70-110)
[2017-08-02 22:00] VITALS: BP 125/54
[2017-08-02] MEDS: CefTRIAXone 1 GM/DEXTROSE 50 ML IV SCH (23:11)
[2017-08-03] VITALS: BP 127/105
[2017-08-03] MEDS: INSULIN REGULAR, HUMAN 100 UNITS/ML SQ PRN ×4 (00:09→23:14)
[2017-08-03] MEDS: IPRATROPIUM BROMIDE 0.5 MG/2.5 ML NEB SOLUTION NEB SCH ×4 (02:10→20:10)
[2017-08-03] MEDS: ALBUTEROL SULFATE 2.5 MG/0.5 ML NEB SOLUTION NEB SCH ×4 (02:10→20:10)
[2017-08-03] MEDS: LORazepam 2 MG/ML VIAL IVP PRN ×2 (03:51→20:23)
[2017-08-03] MEDS: ALBUMIN HUMAN 25%-12.5GM/50ML 50 ML IV SCH ×3 (03:52→20:22)
[2017-08-03 03:58] LABS: GLUCOSE COMMENT 1 Received Meds; GLUCOSE,POINT OF CARE 191 MG/DL (70-110)
[2017-08-03 04:00] VITALS: BP 124/63
[2017-08-03 05:13] LABS: ANION GAP 7 mmol/L (8-16); CALCIUM, TOTAL 9.2 mg/dL (8.8-10.5); CARBON DIOXIDE 30 mmol/L (22-29); CHLORIDE 98 mmol/L (98-107); CREATININE 0.65 mg/dL (0.60-1.30); GLOMERULAR FILTR. RATE CALC > 60 mL/min (>60); POTASSIUM 4.6 mmol/L (3.5-5.1); SODIUM SERUM 135 mmol/L (136-145); UREA NITROGEN, BLOOD 35 mg/dL (7-18)
[2017-08-03 05:48] LABS: HEMATOCRIT 24.6 % (36-46); HEMOGLOBIN 8.3 g/dL (12.0-16.0); MEAN CORPUSCULAR HEMOGLOBIN 34.1 pg (26.0-34.0); MEAN CORPUSCULAR HGB CONC 33.7 G/dL (31.0-37.0); MEAN CORPUSCULAR VOLUME 101 fL (80-100); PLATELET COUNT (AUTO) 165 K/uL (150-450); RED BLOOD CELL COUNT(AUTO) 2.43 MIL/uL (4.00-5.20); RED CELL DISTRIBUTION WIDTH 15.5 % (11.5-14.5); WHITE BLOOD COUNT (AUTO) 3.8 K/uL (4.5-11.0)
[2017-08-03] MEDS ORDERED: SODIUM CHLORIDE 0.9% 250 ML IV ONE ×2 (05:58→20:20)
[2017-08-03 07:02] LABS: GLUCOSE COMMENT 1 Received Meds; GLUCOSE,POINT OF CARE 208 MG/DL (70-110)
[2017-08-03 08:00] VITALS: BP 102/65
[2017-08-03 08:00] LABS: BAND NEUTROPHILS % (MANUAL) 21 % (1-5); LYMPHOCYTES % (MANUAL) 12 % (22-44); METAMYELOCYTES % 2 % (0-0); TOTAL CELLS COUNTED 100
[2017-08-03 08:01] LABS: RBC MORPHOLOGY COMMENT ABNORMAL RBC MORPH
[2017-08-03] MEDS: PANTOPRAZOLE SODIUM 40 MG/VIAL IVP SCH (08:26)
[2017-08-03] MEDS: CLOPIDOGREL BISULFATE 75 MG TABLET PO SCH (08:26)
[2017-08-03] MEDS: HEPARIN SODIUM,PORCINE 5,000 UNITS/ML VIAL SQ SCH ×2 (08:26→20:23)
[2017-08-03] MEDS: MetroNIDAZOLE 500 MG TABLET PO SCH ×3 (08:26→23:09)
[2017-08-03] MEDS: ASPIRIN 81 MG EC TABLET PO SCH (08:27)
[2017-08-03] MEDS: OSELTAMIVIR PHOSPHATE 30 MG CAPSULE PO SCH ×2 (08:27→20:23)
[2017-08-03] MEDS: CHOLECALCIFEROL (VIT D3) 1,000 UNITS TABLET PO SCH (08:27)
[2017-08-03] MEDS: DOCUSATE SODIUM 100 MG CAPSULE PO SCH ×2 (08:27→20:23)
[2017-08-03] MEDS: MULTIVITAMINS, THERAPEUTIC TABLET PO SCH (08:27)
[2017-08-03] MEDS: MethylPREDNISolone SOD SUCC 40 MG/ML VIAL IVP SCH ×3 (08:27→23:08)
[2017-08-03] MEDS: DOXYCYCLINE 100 MG CAPSULE PO SCH ×2 (08:27→20:23)
[2017-08-03 11:59] LABS: ABG A-A DIFF O2 117.6 mmHg (10-20.0); ABG BASE EXCESS 7.7 mmol/L (-2.0-3.0); ABG HCO3 30.8 mmol/L (22.0-26.0); ABG OXYHEMOGLOBIN 95.6 % (94.0-100.0); ABG PCO2 43 mmHg (35-45); ABG PH 7.479 (7.35-7.450); TEMPERATURE, FAHRENHEIT, BG 98.7 FAHREN (96.0-98.6)
[2017-08-03 12:00] VITALS: BP 100/65
[2017-08-03 12:02] LABS: GLUCOSE COMMENT 1 Received Meds; GLUCOSE,POINT OF CARE 160 MG/DL (70-110)
[2017-08-03 12:02] LABS: ALLEN TEST, BLOOD GAS Positive
[2017-08-03 16:00] VITALS: BP 126/53
[2017-08-03 18:28] LABS: GLUCOSE COMMENT 1 Received Meds; GLUCOSE,POINT OF CARE 182 MG/DL (70-110)
[2017-08-03 20:00] VITALS: BP 116/75
[2017-08-03] MEDS: CefTRIAXone 1 GM/DEXTROSE 50 ML IV SCH (23:09)
[2017-08-04] VITALS (8 sets, daily range): BP systolic 95–170; BP diastolic 42–71
[2017-08-04] MEDS ORDERED: NOREPINEPHRINE 4 MG/D5%-WATER 0 ML IV ONE (00:18)
[2017-08-04] MEDS: IPRATROPIUM BROMIDE 0.5 MG/2.5 ML NEB SOLUTION NEB SCH ×4 (01:50→19:47)
[2017-08-04] MEDS: ALBUTEROL SULFATE 2.5 MG/0.5 ML NEB SOLUTION NEB SCH ×4 (01:50→19:47)
[2017-08-04] MEDS: ALBUMIN HUMAN 25%-12.5GM/50ML 50 ML IV SCH ×3 (03:53→21:13)
[2017-08-04 05:20] LABS: HEMATOCRIT 25.5 % (36-46); HEMOGLOBIN 8.6 g/dL (12.0-16.0); MEAN CORPUSCULAR HEMOGLOBIN 33.9 pg (26.0-34.0); MEAN CORPUSCULAR HGB CONC 33.7 G/dL (31.0-37.0); MEAN CORPUSCULAR VOLUME 100 fL (80-100); PLATELET COUNT (AUTO) 205 K/uL (150-450); RED BLOOD CELL COUNT(AUTO) 2.54 MIL/uL (4.00-5.20); RED CELL DISTRIBUTION WIDTH 15.5 % (11.5-14.5)
[2017-08-04 05:32] LABS: ALANINE AMINOTRANSFERASE 42 U/L (12-78); ALBUMIN 4.3 g/dL (3.4-5.0); ANION GAP 7 mmol/L (8-16); ASPARTATE AMINOTRANSFERASE 19 U/L (15-37); BILIRUBIN,TOTAL 0.4 mg/dL (0.1-1.0); CALCIUM, TOTAL 9.6 mg/dL (8.8-10.5); CARBON DIOXIDE 30 mmol/L (22-29); CHLORIDE 98 mmol/L (98-107); CREATININE 0.71 mg/dL (0.60-1.30); GLOMERULAR FILTR. RATE CALC > 60 mL/min (>60); POTASSIUM 4.8 mmol/L (3.5-5.1); SODIUM SERUM 135 mmol/L (136-145); TOTAL PROTEIN, SERUM 6.8 g/dL (6.4-8.2); UREA NITROGEN, BLOOD 34 mg/dL (7-18)
[2017-08-04] MEDS: INSULIN REGULAR, HUMAN 100 UNITS/ML SQ PRN ×3 (06:01→23:57)
[2017-08-04 07:56] LABS: BAND NEUTROPHILS % (MANUAL) 56 % (1-5); LYMPHOCYTES % (MANUAL) 28 % (22-44); TOTAL CELLS COUNTED 100
[2017-08-04 07:57] LABS: RBC MORPHOLOGY COMMENT ABNORMAL RBC MORPH
[2017-08-04] MEDS: CHOLECALCIFEROL (VIT D3) 1,000 UNITS TABLET PO SCH (08:23)
[2017-08-04] MEDS: DOXYCYCLINE 100 MG CAPSULE PO SCH ×2 (08:23→21:13)
[2017-08-04] MEDS: HEPARIN SODIUM,PORCINE 5,000 UNITS/ML VIAL SQ SCH ×2 (08:23→21:14)
[2017-08-04] MEDS: OSELTAMIVIR PHOSPHATE 30 MG CAPSULE PO SCH ×2 (08:23→21:13)
[2017-08-04] MEDS: DOCUSATE SODIUM 100 MG CAPSULE PO SCH ×2 (08:24→21:13)
[2017-08-04] MEDS: ASPIRIN 81 MG EC TABLET PO SCH (08:24)
[2017-08-04] MEDS: PANTOPRAZOLE SODIUM 40 MG/VIAL IVP SCH (08:24)
[2017-08-04] MEDS: MetroNIDAZOLE 500 MG TABLET PO SCH ×3 (08:24→23:54)
[2017-08-04] MEDS: MULTIVITAMINS, THERAPEUTIC TABLET PO SCH (08:24)
[2017-08-04] MEDS: MethylPREDNISolone SOD SUCC 40 MG/ML VIAL IVP SCH ×3 (08:24→23:54)
[2017-08-04] MEDS: CLOPIDOGREL BISULFATE 75 MG TABLET PO SCH (08:24)
[2017-08-04] MEDS: LORazepam 2 MG/ML VIAL IVP PRN ×2 (12:50→22:11)
[2017-08-04] MEDS: ACETAMINOPHEN 325 MG TABLET PO PRN (15:41)
[2017-08-04 18:08] LABS: GLUCOSE COMMENT 1 Received Meds; GLUCOSE,POINT OF CARE 207 MG/DL (70-110)
[2017-08-04 18:08] LABS: GLUCOSE COMMENT 1 Received Meds; GLUCOSE,POINT OF CARE 222 MG/DL (70-110)
[2017-08-04 18:08] LABS: GLUCOSE,POINT OF CARE 158 MG/DL (70-110)
[2017-08-04 18:08] LABS: GLUCOSE COMMENT 1 Received Meds; GLUCOSE,POINT OF CARE 177 MG/DL (70-110)
[2017-08-04] MEDS: BISACODYL 10 MG RECTAL RECTAL SUPPOSITORY PR PRN (18:31)
[2017-08-04] MEDS ORDERED: SODIUM CHLORIDE 0.9% 250 ML IV ONE (21:11)
[2017-08-04] MEDS: CefTRIAXone 1 GM/DEXTROSE 50 ML IV SCH (22:10)
[2017-08-05] VITALS: BP 113/79
[2017-08-05] MEDS: IPRATROPIUM BROMIDE 0.5 MG/2.5 ML NEB SOLUTION NEB SCH ×4 (01:43→20:25)
[2017-08-05] MEDS: ALBUTEROL SULFATE 2.5 MG/0.5 ML NEB SOLUTION NEB SCH ×4 (01:43→20:25)
[2017-08-05 04:00] VITALS: BP 106/58
[2017-08-05 05:10] LABS: HEMATOCRIT 24.9 % (36-46); HEMOGLOBIN 8.4 g/dL (12.0-16.0); MEAN CORPUSCULAR HEMOGLOBIN 34.1 pg (26.0-34.0); MEAN CORPUSCULAR HGB CONC 33.8 G/dL (31.0-37.0); MEAN CORPUSCULAR VOLUME 101 fL (80-100); PLATELET COUNT (AUTO) 231 K/uL (150-450); RED BLOOD CELL COUNT(AUTO) 2.47 MIL/uL (4.00-5.20); RED CELL DISTRIBUTION WIDTH 15.9 % (11.5-14.5); WHITE BLOOD COUNT (AUTO) 8.6 K/uL (4.5-11.0)
[2017-08-05] MEDS: LORazepam 2 MG/ML VIAL IVP PRN (05:22)
[2017-08-05] MEDS: ALBUMIN HUMAN 25%-12.5GM/50ML 50 ML IV SCH ×3 (05:22→20:56)
[2017-08-05] MEDS: INSULIN REGULAR, HUMAN 100 UNITS/ML SQ PRN ×3 (05:23→17:48)
[2017-08-05 06:14] LABS: ALANINE AMINOTRANSFERASE 34 U/L (12-78); ANION GAP 9 mmol/L (8-16); ASPARTATE AMINOTRANSFERASE 11 U/L (15-37); BILIRUBIN,TOTAL 0.4 mg/dL (0.1-1.0); CALCIUM, TOTAL 9.2 mg/dL (8.8-10.5); CARBON DIOXIDE 28 mmol/L (22-29); CHLORIDE 100 mmol/L (98-107); CREATININE 0.59 mg/dL (0.60-1.30); GLOMERULAR FILTR. RATE CALC > 60 mL/min (>60); POTASSIUM 4.8 mmol/L (3.5-5.1); SODIUM SERUM 137 mmol/L (136-145); TOTAL PROTEIN, SERUM 6.4 g/dL (6.4-8.2); UREA NITROGEN, BLOOD 36 mg/dL (7-18)
[2017-08-05 06:37] LABS: GLUCOSE COMMENT 1 Received Meds; GLUCOSE,POINT OF CARE 167 MG/DL (70-110)
[2017-08-05 08:00] VITALS: BP 105/54
[2017-08-05 08:41] LABS: BAND NEUTROPHILS % (MANUAL) 56 % (1-5); LYMPHOCYTES % (MANUAL) 7 % (22-44); TOTAL CELLS COUNTED 100
[2017-08-05 08:42] LABS: RBC MORPHOLOGY COMMENT ABNORMAL RBC MORPH
[2017-08-05] MEDS: MULTIVITAMINS, THERAPEUTIC TABLET PO SCH (09:01)
[2017-08-05] MEDS: DOCUSATE SODIUM 100 MG CAPSULE PO SCH ×2 (09:01→20:57)
[2017-08-05] MEDS: MetroNIDAZOLE 500 MG TABLET PO SCH ×2 (09:01→15:30)
[2017-08-05] MEDS: PANTOPRAZOLE SODIUM 40 MG/VIAL IVP SCH (09:01)
[2017-08-05] MEDS: MethylPREDNISolone SOD SUCC 40 MG/ML VIAL IVP SCH ×2 (09:01→15:30)
[2017-08-05] MEDS: HEPARIN SODIUM,PORCINE 5,000 UNITS/ML VIAL SQ SCH (09:01)
[2017-08-05] MEDS: CHOLECALCIFEROL (VIT D3) 1,000 UNITS TABLET PO SCH (09:02)
[2017-08-05] MEDS: ASPIRIN 81 MG EC TABLET PO SCH (09:02)
[2017-08-05] MEDS: CLOPIDOGREL BISULFATE 75 MG TABLET PO SCH (09:02)
[2017-08-05] MEDS: OSELTAMIVIR PHOSPHATE 30 MG CAPSULE PO SCH ×2 (09:02→20:56)
[2017-08-05] MEDS: DOXYCYCLINE 100 MG CAPSULE PO SCH ×2 (09:02→20:56)
[2017-08-05 09:42] LABS: ABG A-A DIFF O2 77.5 mmHg (10-20.0); ABG BASE EXCESS 3.9 mmol/L (-2.0-3.0); ABG HCO3 27.8 mmol/L (22.0-26.0); ABG OXYHEMOGLOBIN 95.6 % (94.0-100.0); ABG PCO2 35 mmHg (35-45); ABG PH 7.504 (7.35-7.450); TEMPERATURE, FAHRENHEIT, BG 97.6 FAHREN (96.0-98.6)
[2017-08-05 09:43] LABS: ALLEN TEST, BLOOD GAS Positive
[2017-08-05 12:00] VITALS: BP 97/58
[2017-08-05 13:35] LABS: GLUCOSE,POINT OF CARE 181 MG/DL (70-110)
[2017-08-05 13:42] LABS: GLUCOSE COMMENT 1 Received Meds; GLUCOSE,POINT OF CARE 189 MG/DL (70-110)
[2017-08-05 16:00] VITALS: BP 103/60
[2017-08-05 19:33] LABS: GLUCOSE,POINT OF CARE 190 MG/DL (70-110)
[2017-08-05 20:00] VITALS: BP 143/89
[2017-08-05] MEDS: CefTRIAXone 1 GM/DEXTROSE 50 ML IV SCH (23:08)
[2017-08-06] VITALS: BP 123/94
[2017-08-06] MEDS: MetroNIDAZOLE 500 MG TABLET PO SCH ×4 (00:09→23:41)
[2017-08-06] MEDS: MethylPREDNISolone SOD SUCC 40 MG/ML VIAL IVP SCH ×4 (00:09→23:41)
[2017-08-06] MEDS: LORazepam 2 MG/ML VIAL IVP PRN ×2 (00:24→16:05)
[2017-08-06] MEDS: INSULIN REGULAR, HUMAN 100 UNITS/ML SQ PRN ×4 (00:50→17:36)
[2017-08-06] MEDS: IPRATROPIUM BROMIDE 0.5 MG/2.5 ML NEB SOLUTION NEB SCH ×4 (01:19→20:12)
[2017-08-06] MEDS: ALBUTEROL SULFATE 2.5 MG/0.5 ML NEB SOLUTION NEB SCH ×4 (01:19→20:12)
[2017-08-06 04:00] VITALS: BP 117/81
[2017-08-06] MEDS ORDERED: SODIUM CHLORIDE 0.9% 250 ML IV ONE (04:35)
[2017-08-06 05:03] LABS: HEMATOCRIT 24.7 % (36-46); HEMOGLOBIN 8.2 g/dL (12.0-16.0); MEAN CORPUSCULAR HEMOGLOBIN 33.4 pg (26.0-34.0); MEAN CORPUSCULAR HGB CONC 33.4 G/dL (31.0-37.0); MEAN CORPUSCULAR VOLUME 100 fL (80-100); PLATELET COUNT (AUTO) 237 K/uL (150-450); RED BLOOD CELL COUNT(AUTO) 2.47 MIL/uL (4.00-5.20); RED CELL DISTRIBUTION WIDTH 15.4 % (11.5-14.5); WHITE BLOOD COUNT (AUTO) 6.4 K/uL (4.5-11.0)
[2017-08-06] MEDS: ALBUMIN HUMAN 25%-12.5GM/50ML 50 ML IV SCH ×3 (05:10→20:40)
[2017-08-06 05:18] LABS: ALANINE AMINOTRANSFERASE 27 U/L (12-78); ALBUMIN 4.1 g/dL (3.4-5.0); ANION GAP 8 mmol/L (8-16); ASPARTATE AMINOTRANSFERASE 8 U/L (15-37); BILIRUBIN,TOTAL 0.4 mg/dL (0.1-1.0); CALCIUM, TOTAL 9.4 mg/dL (8.8-10.5); CARBON DIOXIDE 28 mmol/L (22-29); CHLORIDE 101 mmol/L (98-107); CREATININE 0.64 mg/dL (0.60-1.30); GLOMERULAR FILTR. RATE CALC > 60 mL/min (>60); POTASSIUM 4.6 mmol/L (3.5-5.1); SODIUM SERUM 137 mmol/L (136-145); TOTAL PROTEIN, SERUM 6.5 g/dL (6.4-8.2); UREA NITROGEN, BLOOD 34 mg/dL (7-18)
[2017-08-06 06:44] LABS: GLUCOSE,POINT OF CARE 218 MG/DL (70-110)
[2017-08-06 06:44] LABS: GLUCOSE,POINT OF CARE 193 MG/DL (70-110)
[2017-08-06 07:44] LABS: BAND NEUTROPHILS % (MANUAL) 71 % (1-5); LYMPHOCYTES % (MANUAL) 5 % (22-44); METAMYELOCYTES % 2 % (0-0); TOTAL CELLS COUNTED 100
[2017-08-06 07:45] LABS: RBC MORPHOLOGY COMMENT NORMAL RBC MORPH
[2017-08-06 08:00] VITALS: BP 117/67
[2017-08-06] MEDS: PANTOPRAZOLE SODIUM 40 MG/VIAL IVP SCH (08:08)
[2017-08-06] MEDS: MULTIVITAMINS, THERAPEUTIC TABLET PO SCH (08:09)
[2017-08-06] MEDS: CHOLECALCIFEROL (VIT D3) 1,000 UNITS TABLET PO SCH (08:09)
[2017-08-06] MEDS: DOXYCYCLINE 100 MG CAPSULE PO SCH ×2 (08:09→20:38)
[2017-08-06] MEDS: ASPIRIN 81 MG EC TABLET PO SCH (08:09)
[2017-08-06] MEDS: OSELTAMIVIR PHOSPHATE 30 MG CAPSULE PO SCH ×2 (08:09→20:38)
[2017-08-06] MEDS: DOCUSATE SODIUM 100 MG CAPSULE PO SCH ×2 (08:09→20:38)
[2017-08-06] MEDS: CLOPIDOGREL BISULFATE 75 MG TABLET PO SCH (09:39)
[2017-08-06 12:00] VITALS: BP 117/73
[2017-08-06 16:00] VITALS: BP 119/61
[2017-08-06 20:00] VITALS: BP 131/74
[2017-08-06] MEDS: HEPARIN SODIUM,PORCINE 5,000 UNITS/ML VIAL SQ SCH (20:38)
[2017-08-06] MEDS: CefTRIAXone 1 GM/DEXTROSE 50 ML IV SCH (22:33)
[2017-08-07] VITALS: BP 95/60
[2017-08-07] MEDS: INSULIN REGULAR, HUMAN 100 UNITS/ML SQ PRN ×4 (00:26→22:03)
[2017-08-07] MEDS: ALBUTEROL SULFATE 2.5 MG/0.5 ML NEB SOLUTION NEB SCH ×4 (02:18→20:02)
[2017-08-07] MEDS: IPRATROPIUM BROMIDE 0.5 MG/2.5 ML NEB SOLUTION NEB SCH ×4 (02:18→20:02)
[2017-08-07 04:00] VITALS: BP 110/35
[2017-08-07] MEDS: ALBUMIN HUMAN 25%-12.5GM/50ML 50 ML IV SCH ×3 (04:14→20:16)
[2017-08-07] MEDS: LORazepam 2 MG/ML VIAL IVP PRN ×2 (04:17→20:17)
[2017-08-07 05:43] LABS: HEMATOCRIT 24.4 % (36-46); MEAN CORPUSCULAR HEMOGLOBIN 33.4 pg (26.0-34.0); MEAN CORPUSCULAR VOLUME 101 fL (80-100); PLATELET COUNT (AUTO) 261 K/uL (150-450); RED BLOOD CELL COUNT(AUTO) 2.41 MIL/uL (4.00-5.20); RED CELL DISTRIBUTION WIDTH 16.5 % (11.5-14.5); WHITE BLOOD COUNT (AUTO) 7.9 K/uL (4.5-11.0)
[2017-08-07 06:15] LABS: ALANINE AMINOTRANSFERASE 26 U/L (12-78); ALBUMIN 4.6 g/dL (3.4-5.0); ANION GAP 6 mmol/L (8-16); ASPARTATE AMINOTRANSFERASE 10 U/L (15-37); BILIRUBIN,TOTAL 0.5 mg/dL (0.1-1.0); CALCIUM, TOTAL 9.3 mg/dL (8.8-10.5); CARBON DIOXIDE 29 mmol/L (22-29); CHLORIDE 101 mmol/L (98-107); CREATININE 0.58 mg/dL (0.60-1.30); GLOMERULAR FILTR. RATE CALC > 60 mL/min (>60); POTASSIUM 4.7 mmol/L (3.5-5.1); SODIUM SERUM 136 mmol/L (136-145); TOTAL PROTEIN, SERUM 6.8 g/dL (6.4-8.2); UREA NITROGEN, BLOOD 34 mg/dL (7-18)
[2017-08-07 06:32] LABS: BAND NEUTROPHILS % (MANUAL) 26 % (1-5); LYMPHOCYTES % (MANUAL) 11 % (22-44); TOTAL CELLS COUNTED 100; WBC MORPHOLOGY PELGER-HUET CELLS
[2017-08-07 08:00] VITALS: BP 128/47
[2017-08-07 08:07] LABS: GLUCOSE,POINT OF CARE 205 MG/DL (70-110)
[2017-08-07] MEDS: MethylPREDNISolone SOD SUCC 40 MG/ML VIAL IVP SCH ×2 (08:07→16:58)
[2017-08-07] MEDS: OSELTAMIVIR PHOSPHATE 30 MG CAPSULE PO SCH ×2 (08:07→20:16)
[2017-08-07] MEDS: PANTOPRAZOLE SODIUM 40 MG/VIAL IVP SCH (08:07)
[2017-08-07] MEDS: CHOLECALCIFEROL (VIT D3) 1,000 UNITS TABLET PO SCH (08:07)
[2017-08-07] MEDS: HEPARIN SODIUM,PORCINE 5,000 UNITS/ML VIAL SQ SCH ×2 (08:07→22:02)
[2017-08-07] MEDS: DOXYCYCLINE 100 MG CAPSULE PO SCH ×2 (08:08→20:17)
[2017-08-07] MEDS: CLOPIDOGREL BISULFATE 75 MG TABLET PO SCH (08:08)
[2017-08-07] MEDS: ASPIRIN 81 MG EC TABLET PO SCH (08:08)
[2017-08-07] MEDS: MetroNIDAZOLE 500 MG TABLET PO SCH ×2 (08:08→16:58)
[2017-08-07] MEDS: MULTIVITAMINS, THERAPEUTIC TABLET PO SCH (08:08)
[2017-08-07] MEDS: DOCUSATE SODIUM 100 MG CAPSULE PO SCH ×2 (08:09→20:17)
[2017-08-07 08:12] LABS: GLUCOSE,POINT OF CARE 160 MG/DL (70-110)
[2017-08-07 08:13] LABS: GLUCOSE,POINT OF CARE 86 MG/DL (70-110)
[2017-08-07 08:13] LABS: GLUCOSE,POINT OF CARE 201 MG/DL (70-110)
[2017-08-07 12:00] VITALS: BP 99/41
[2017-08-07 14:52] LABS: GLUCOSE COMMENT 1 Received Meds; GLUCOSE,POINT OF CARE 183 MG/DL (70-110)
[2017-08-07 16:00] VITALS: BP 105/68
[2017-08-07] MEDS: ACETAMINOPHEN 325 MG TABLET PO PRN (16:59)
[2017-08-07 20:00] VITALS: BP 111/76
[2017-08-07] MEDS: CefTRIAXone 1 GM/DEXTROSE 50 ML IV SCH (23:19)
[2017-08-08] VITALS: BP 105/62
[2017-08-08] MEDS ORDERED: SODIUM CHLORIDE 0.9% 250 ML IV ONE ×2 (00:17→23:56)
[2017-08-08] MEDS: MethylPREDNISolone SOD SUCC 40 MG/ML VIAL IVP SCH ×3 (00:20→16:45)
[2017-08-08] MEDS: MetroNIDAZOLE 500 MG TABLET PO SCH ×3 (00:20→16:46)
[2017-08-08] MEDS: IPRATROPIUM BROMIDE 0.5 MG/2.5 ML NEB SOLUTION NEB SCH ×4 (02:02→19:49)
[2017-08-08] MEDS: ALBUTEROL SULFATE 2.5 MG/0.5 ML NEB SOLUTION NEB SCH ×4 (02:03→19:49)
[2017-08-08 04:00] VITALS: BP 123/67
[2017-08-08] MEDS: ALBUMIN HUMAN 25%-12.5GM/50ML 50 ML IV SCH ×3 (05:23→20:04)
[2017-08-08 05:47] LABS: ALANINE AMINOTRANSFERASE 22 U/L (12-78); ALBUMIN 4.7 g/dL (3.4-5.0); ANION GAP 9 mmol/L (8-16); ASPARTATE AMINOTRANSFERASE 11 U/L (15-37); BILIRUBIN,TOTAL 0.6 mg/dL (0.1-1.0); CALCIUM, TOTAL 9.6 mg/dL (8.8-10.5); CARBON DIOXIDE 26 mmol/L (22-29); CHLORIDE 100 mmol/L (98-107); CREATININE 0.68 mg/dL (0.60-1.30); GLOMERULAR FILTR. RATE CALC > 60 mL/min (>60); POTASSIUM 4.6 mmol/L (3.5-5.1); SODIUM SERUM 135 mmol/L (136-145); TOTAL PROTEIN, SERUM 7.1 g/dL (6.4-8.2); UREA NITROGEN, BLOOD 38 mg/dL (7-18)
[2017-08-08 05:57] LABS: MEAN CORPUSCULAR HEMOGLOBIN 34.6 pg (26.0-34.0); MEAN CORPUSCULAR HGB CONC 34.4 G/dL (31.0-37.0); MEAN CORPUSCULAR VOLUME 101 fL (80-100); PLATELET COUNT (AUTO) 278 K/uL (150-450); RED BLOOD CELL COUNT(AUTO) 2.59 MIL/uL (4.00-5.20); RED CELL DISTRIBUTION WIDTH 16.1 % (11.5-14.5); WHITE BLOOD COUNT (AUTO) 7.5 K/uL (4.5-11.0)
[2017-08-08] MEDS: INSULIN REGULAR, HUMAN 100 UNITS/ML SQ PRN ×3 (05:59→16:50)
[2017-08-08 07:24] LABS: BAND NEUTROPHILS % (MANUAL) 15 % (1-5); LYMPHOCYTES % (MANUAL) 9 % (22-44); TOTAL CELLS COUNTED 100
[2017-08-08 07:43] LABS: GLUCOSE,POINT OF CARE 167 MG/DL (70-110)
[2017-08-08 07:43] LABS: GLUCOSE,POINT OF CARE 212 MG/DL (70-110)
[2017-08-08 07:43] LABS: GLUCOSE COMMENT 1 Received Meds; GLUCOSE,POINT OF CARE 160 MG/DL (70-110)
[2017-08-08 07:43] LABS: GLUCOSE,POINT OF CARE 200 MG/DL (70-110)
[2017-08-08] MEDS: CHOLECALCIFEROL (VIT D3) 1,000 UNITS TABLET PO SCH (07:58)
[2017-08-08] MEDS: OSELTAMIVIR PHOSPHATE 30 MG CAPSULE PO SCH ×2 (07:59→20:04)
[2017-08-08] MEDS: ASPIRIN 81 MG EC TABLET PO SCH (07:59)
[2017-08-08] MEDS: DOXYCYCLINE 100 MG CAPSULE PO SCH ×2 (07:59→20:05)
[2017-08-08] MEDS: DOCUSATE SODIUM 100 MG CAPSULE PO SCH ×2 (07:59→20:04)
[2017-08-08] MEDS: MULTIVITAMINS, THERAPEUTIC TABLET PO SCH (07:59)
[2017-08-08 08:00] VITALS: BP 114/60
[2017-08-08] MEDS: HEPARIN SODIUM,PORCINE 5,000 UNITS/ML VIAL SQ SCH ×2 (08:00→20:05)
[2017-08-08] MEDS: CLOPIDOGREL BISULFATE 75 MG TABLET PO SCH (08:00)
[2017-08-08] MEDS: PANTOPRAZOLE SODIUM 40 MG/VIAL IVP SCH (08:00)
[2017-08-08 08:56] LABS: WBC MORPHOLOGY PELGER-HUET CELLS
[2017-08-08] MEDS: LORazepam 2 MG/ML VIAL IVP PRN ×2 (10:36→20:05)
[2017-08-08 12:00] VITALS: BP 110/63
[2017-08-08 16:00] VITALS: BP 99/63
[2017-08-08] MEDS: ACETAMINOPHEN 325 MG TABLET PO PRN (16:47)
[2017-08-08 18:18] LABS: GLUCOSE COMMENT 1 Received Meds; GLUCOSE,POINT OF CARE 155 MG/DL (70-110)
[2017-08-08 20:00] VITALS: BP 113/57
[2017-08-08] MEDS: CefTRIAXone 1 GM/DEXTROSE 50 ML IV SCH (23:46)
[2017-08-09] VITALS: BP 109/59
[2017-08-09] MEDS: INSULIN REGULAR, HUMAN 100 UNITS/ML SQ PRN ×4 (00:02→16:55)
[2017-08-09] MEDS: ALBUTEROL SULFATE 2.5 MG/0.5 ML NEB SOLUTION NEB SCH ×4 (02:03→20:12)
[2017-08-09] MEDS: IPRATROPIUM BROMIDE 0.5 MG/2.5 ML NEB SOLUTION NEB SCH ×4 (02:04→20:12)
[2017-08-09 04:00] VITALS: BP 107/61
[2017-08-09] MEDS: ALBUMIN HUMAN 25%-12.5GM/50ML 50 ML IV SCH ×3 (05:29→20:07)
[2017-08-09 05:36] LABS: ALANINE AMINOTRANSFERASE 20 U/L (12-78); ALBUMIN 4.5 g/dL (3.4-5.0); ANION GAP 8 mmol/L (8-16); ASPARTATE AMINOTRANSFERASE 7 U/L (15-37); BILIRUBIN,TOTAL 0.6 mg/dL (0.1-1.0); CALCIUM, TOTAL 9.5 mg/dL (8.8-10.5); CARBON DIOXIDE 28 mmol/L (22-29); CHLORIDE 100 mmol/L (98-107); CREATININE 0.67 mg/dL (0.60-1.30); GLOMERULAR FILTR. RATE CALC > 60 mL/min (>60); POTASSIUM 4.6 mmol/L (3.5-5.1); SODIUM SERUM 136 mmol/L (136-145); TOTAL PROTEIN, SERUM 6.7 g/dL (6.4-8.2); UREA NITROGEN, BLOOD 40 mg/dL (7-18)
[2017-08-09 05:39] LABS: EOSINOPHILS % (AUTO) 0.07 % (1.0-6.0); HEMATOCRIT 24.9 % (36-46); HEMOGLOBIN 8.3 g/dL (12.0-16.0); LYMPHOCYTES # (AUTO) 0.4 K/uL (1.0-4.8); LYMPHOCYTES % (AUTO) 5.4 % (22.0-44.0); MEAN CORPUSCULAR HEMOGLOBIN 34.4 pg (26.0-34.0); MEAN CORPUSCULAR HGB CONC 33.4 G/dL (31.0-37.0); MEAN CORPUSCULAR VOLUME 103 fL (80-100); MONOCYTES # (AUTO) 0.3 K/uL (0.1-1.0); MONOCYTES % (AUTO) 4.3 % (2.0-9.0); NEUTROPHILS # (AUTO) 5.9 K/uL (1.8-7.7); PLATELET COUNT (AUTO) 261 K/uL (150-450); RED BLOOD CELL COUNT(AUTO) 2.42 MIL/uL (4.00-5.20); RED CELL DISTRIBUTION WIDTH 16.6 % (11.5-14.5); WHITE BLOOD COUNT (AUTO) 6.5 K/uL (4.5-11.0)
[2017-08-09 05:41] LABS: NEUTROPHILS % (AUTO) 90.2 % (40.0-70.0)
[2017-08-09 06:43] LABS: GLUCOSE COMMENT 1 Received Meds; GLUCOSE,POINT OF CARE 206 MG/DL (70-110)
[2017-08-09 07:52] LABS: RBC MORPHOLOGY COMMENT ABNORMAL RBC MORPH
[2017-08-09 08:00] VITALS: BP 118/66
[2017-08-09] MEDS: DOCUSATE SODIUM 100 MG CAPSULE PO SCH ×2 (09:14→20:07)
[2017-08-09] MEDS: HEPARIN SODIUM,PORCINE 5,000 UNITS/ML VIAL SQ SCH ×2 (09:14→20:08)
[2017-08-09] MEDS: PANTOPRAZOLE SODIUM 40 MG/VIAL IVP SCH (09:14)
[2017-08-09] MEDS: MethylPREDNISolone SOD SUCC 40 MG/ML VIAL IVP SCH ×3 (09:14→16:39)
[2017-08-09] MEDS: DOXYCYCLINE 100 MG CAPSULE PO SCH ×2 (09:15→20:07)
[2017-08-09] MEDS: ASPIRIN 81 MG EC TABLET PO SCH (09:15)
[2017-08-09] MEDS: MULTIVITAMINS, THERAPEUTIC TABLET PO SCH (09:15)
[2017-08-09] MEDS: MetroNIDAZOLE 500 MG TABLET PO SCH ×3 (09:15→16:39)
[2017-08-09] MEDS: CLOPIDOGREL BISULFATE 75 MG TABLET PO SCH (09:15)
[2017-08-09] MEDS: CHOLECALCIFEROL (VIT D3) 1,000 UNITS TABLET PO SCH (09:15)
[2017-08-09 09:38] LABS: INFLUENZA TYPE B NEGATIVE FOR TYPE B (NEGATIVE)
[2017-08-09 11:56] LABS: ABG A-A DIFF O2 102.9 mmHg (10-20.0); ABG BASE EXCESS -2.3 mmol/L (-2.0-3.0); ABG OXYHEMOGLOBIN 94.3 % (94.0-100.0); ABG PCO2 30 mmHg (35-45); ABG PH 7.471 (7.35-7.450); TEMPERATURE, FAHRENHEIT, BG 98.6 FAHREN (96.0-98.6)
[2017-08-09 11:57] LABS: ALLEN TEST, BLOOD GAS Positive
[2017-08-09 12:00] VITALS: BP 152/64
[2017-08-09 14:33] LABS: GLUCOSE COMMENT 1 Received Meds; GLUCOSE,POINT OF CARE 206 MG/DL (70-110)
[2017-08-09 14:33] LABS: GLUCOSE,POINT OF CARE 164 MG/DL (70-110)
[2017-08-09 14:33] LABS: GLUCOSE COMMENT 1 Received Meds; GLUCOSE,POINT OF CARE 196 MG/DL (70-110)
[2017-08-09 16:00] VITALS: BP 115/78
[2017-08-09] MEDS: ACETAMINOPHEN 325 MG TABLET PO PRN (18:04)
[2017-08-09] MEDS: LORazepam 2 MG/ML VIAL IVP PRN (19:31)
[2017-08-09 20:00] VITALS: BP 116/60
[2017-08-09] MEDS ORDERED: SODIUM CHLORIDE 0.9% 250 ML IV ONE (20:04)
[2017-08-09] MEDS: CefTRIAXone 1 GM/DEXTROSE 50 ML IV SCH (23:29)
[2017-08-10] VITALS: BP 126/59
[2017-08-10] MEDS: MetroNIDAZOLE 500 MG TABLET PO SCH ×4 (00:24→23:30)
[2017-08-10] MEDS: MethylPREDNISolone SOD SUCC 40 MG/ML VIAL IVP SCH ×4 (00:24→23:30)
[2017-08-10] MEDS: INSULIN REGULAR, HUMAN 100 UNITS/ML SQ PRN ×5 (00:24→23:32)
[2017-08-10] MEDS: ALBUTEROL SULFATE 2.5 MG/0.5 ML NEB SOLUTION NEB SCH ×4 (01:54→20:13)
[2017-08-10] MEDS: IPRATROPIUM BROMIDE 0.5 MG/2.5 ML NEB SOLUTION NEB SCH ×4 (01:54→20:13)
[2017-08-10 04:00] VITALS: BP 114/61
[2017-08-10] MEDS: ALBUMIN HUMAN 25%-12.5GM/50ML 50 ML IV SCH ×3 (05:03→20:52)
[2017-08-10 05:58] LABS: GLUCOSE COMMENT 1 Received Meds; GLUCOSE,POINT OF CARE 211 MG/DL (70-110)
[2017-08-10 05:58] LABS: ALANINE AMINOTRANSFERASE 21 U/L (12-78); ALBUMIN 4.7 g/dL (3.4-5.0); ANION GAP 10 mmol/L (8-16); ASPARTATE AMINOTRANSFERASE 7 U/L (15-37); BILIRUBIN,TOTAL 0.6 mg/dL (0.1-1.0); CALCIUM, TOTAL 9.6 mg/dL (8.8-10.5); CARBON DIOXIDE 27 mmol/L (22-29); CHLORIDE 101 mmol/L (98-107); CREATININE 0.59 mg/dL (0.60-1.30); GLOMERULAR FILTR. RATE CALC > 60 mL/min (>60); POTASSIUM 4.5 mmol/L (3.5-5.1); SODIUM SERUM 138 mmol/L (136-145); TOTAL PROTEIN, SERUM 6.7 g/dL (6.4-8.2); UREA NITROGEN, BLOOD 38 mg/dL (7-18)
[2017-08-10 05:58] LABS: GLUCOSE COMMENT 1 Received Meds; GLUCOSE,POINT OF CARE 212 MG/DL (70-110)
[2017-08-10 06:19] LABS: HEMATOCRIT 24.7 % (36-46); HEMOGLOBIN 8.4 g/dL (12.0-16.0); MEAN CORPUSCULAR HEMOGLOBIN 34.4 pg (26.0-34.0); MEAN CORPUSCULAR HGB CONC 33.8 G/dL (31.0-37.0); MEAN CORPUSCULAR VOLUME 102 fL (80-100); PLATELET COUNT (AUTO) 275 K/uL (150-450); RED BLOOD CELL COUNT(AUTO) 2.43 MIL/uL (4.00-5.20); RED CELL DISTRIBUTION WIDTH 16.6 % (11.5-14.5); WHITE BLOOD COUNT (AUTO) 5.7 K/uL (4.5-11.0)
[2017-08-10 06:48] LABS: GLUCOSE,POINT OF CARE 181 MG/DL (70-110)
[2017-08-10 08:00] VITALS: BP 108/57
[2017-08-10 08:08] LABS: BAND NEUTROPHILS % (MANUAL) 39 % (1-5); LYMPHOCYTES % (MANUAL) 6 % (22-44); TOTAL CELLS COUNTED 100
[2017-08-10 08:09] LABS: RBC MORPHOLOGY COMMENT ABNORMAL RBC MORPH
[2017-08-10] MEDS: ASPIRIN 81 MG EC TABLET PO SCH (08:12)
[2017-08-10] MEDS: DOXYCYCLINE 100 MG CAPSULE PO SCH ×2 (08:12→20:52)
[2017-08-10] MEDS: CHOLECALCIFEROL (VIT D3) 1,000 UNITS TABLET PO SCH (08:12)
[2017-08-10] MEDS: MULTIVITAMINS, THERAPEUTIC TABLET PO SCH (08:12)
[2017-08-10] MEDS: DOCUSATE SODIUM 100 MG CAPSULE PO SCH ×2 (08:12→20:52)
[2017-08-10] MEDS: CLOPIDOGREL BISULFATE 75 MG TABLET PO SCH (08:12)
[2017-08-10] MEDS: HEPARIN SODIUM,PORCINE 5,000 UNITS/ML VIAL SQ SCH ×2 (08:13→20:52)
[2017-08-10] MEDS: PANTOPRAZOLE SODIUM 40 MG/VIAL IVP SCH (08:13)
[2017-08-10 12:00] VITALS: BP 110/55
[2017-08-10 15:23] LABS: GLUCOSE,POINT OF CARE 201 MG/DL (70-110)
[2017-08-10] MEDS: LORazepam 2 MG/ML VIAL IVP PRN (15:44)
[2017-08-10 16:00] VITALS: BP 110/76
[2017-08-10 19:02] LABS: GLUCOSE,POINT OF CARE 157 MG/DL (70-110)
[2017-08-10 20:00] VITALS: BP 107/63
[2017-08-10] MEDS: CefTRIAXone 1 GM/DEXTROSE 50 ML IV SCH (22:51)
[2017-08-11] VITALS (7 sets, daily range): BP systolic 107–126; BP diastolic 57–83
[2017-08-11] MEDS: ALBUTEROL SULFATE 2.5 MG/0.5 ML NEB SOLUTION NEB SCH ×4 (01:35→20:40)
[2017-08-11] MEDS: IPRATROPIUM BROMIDE 0.5 MG/2.5 ML NEB SOLUTION NEB SCH ×4 (01:35→20:40)
[2017-08-11] MEDS: LORazepam 2 MG/ML VIAL IVP PRN (02:00)
[2017-08-11 02:17] LABS: GLUCOSE COMMENT 1 Received Meds; GLUCOSE,POINT OF CARE 188 MG/DL (70-110)
[2017-08-11] MEDS ORDERED: SODIUM CHLORIDE 0.9% 250 ML IV ONE (04:13)
[2017-08-11] MEDS: ALBUMIN HUMAN 25%-12.5GM/50ML 50 ML IV SCH ×3 (04:16→20:31)
[2017-08-11 04:56] LABS: HEMATOCRIT 24.7 % (36-46); HEMOGLOBIN 8.1 g/dL (12.0-16.0); MEAN CORPUSCULAR HEMOGLOBIN 33.6 pg (26.0-34.0); MEAN CORPUSCULAR HGB CONC 32.6 G/dL (31.0-37.0); MEAN CORPUSCULAR VOLUME 103 fL (80-100); PLATELET COUNT (AUTO) 287 K/uL (150-450); RED BLOOD CELL COUNT(AUTO) 2.39 MIL/uL (4.00-5.20); RED CELL DISTRIBUTION WIDTH 17.2 % (11.5-14.5); WHITE BLOOD COUNT (AUTO) 7.2 K/uL (4.5-11.0)
[2017-08-11 05:08] LABS: ANION GAP 9 mmol/L (8-16); CALCIUM, TOTAL 9.6 mg/dL (8.8-10.5); CARBON DIOXIDE 27 mmol/L (22-29); CHLORIDE 99 mmol/L (98-107); GLOMERULAR FILTR. RATE CALC > 60 mL/min (>60); POTASSIUM 4.6 mmol/L (3.5-5.1); SODIUM SERUM 135 mmol/L (136-145); UREA NITROGEN, BLOOD 38 mg/dL (7-18)
[2017-08-11] MEDS: INSULIN REGULAR, HUMAN 100 UNITS/ML SQ PRN ×4 (05:37→21:56)
[2017-08-11 06:22] LABS: BAND NEUTROPHILS % (MANUAL) 16 % (1-5); LYMPHOCYTES % (MANUAL) 7 % (22-44); TOTAL CELLS COUNTED 100
[2017-08-11 06:23] LABS: RBC MORPHOLOGY COMMENT ABNORMAL RBC MORPH; WBC MORPHOLOGY PELGER-HUET CELLS
[2017-08-11 07:07] LABS: GLUCOSE COMMENT 1 Received Meds; GLUCOSE,POINT OF CARE 166 MG/DL (70-110)
[2017-08-11] MEDS: DOCUSATE SODIUM 100 MG CAPSULE PO SCH ×2 (08:06→21:29)
[2017-08-11] MEDS: PANTOPRAZOLE SODIUM 40 MG/VIAL IVP SCH (08:07)
[2017-08-11] MEDS: MetroNIDAZOLE 500 MG TABLET PO SCH ×3 (08:09→23:46)
[2017-08-11] MEDS: CHOLECALCIFEROL (VIT D3) 1,000 UNITS TABLET PO SCH (08:09)
[2017-08-11] MEDS: ASPIRIN 81 MG EC TABLET PO SCH (08:09)
[2017-08-11] MEDS: DOXYCYCLINE 100 MG CAPSULE PO SCH ×2 (08:09→21:32)
[2017-08-11] MEDS: MULTIVITAMINS, THERAPEUTIC TABLET PO SCH (08:09)
[2017-08-11] MEDS: CLOPIDOGREL BISULFATE 75 MG TABLET PO SCH (08:09)
[2017-08-11] MEDS: MethylPREDNISolone SOD SUCC 40 MG/ML VIAL IVP SCH ×3 (08:10→23:46)
[2017-08-11] MEDS: HEPARIN SODIUM,PORCINE 5,000 UNITS/ML VIAL SQ SCH ×2 (08:10→21:30)
[2017-08-11 17:32] LABS: GLUCOSE COMMENT 1 Received Meds; GLUCOSE,POINT OF CARE 158 MG/DL (70-110)
[2017-08-11] MEDS: CefTRIAXone 1 GM/DEXTROSE 50 ML IV SCH (22:40)
[2017-08-12 00:23] LABS: GLUCOSE COMMENT 1 Received Meds; GLUCOSE,POINT OF CARE 238 MG/DL (70-110)
[2017-08-12] MEDS: IPRATROPIUM BROMIDE 0.5 MG/2.5 ML NEB SOLUTION NEB SCH ×4 (02:23→20:37)
[2017-08-12] MEDS: ALBUTEROL SULFATE 2.5 MG/0.5 ML NEB SOLUTION NEB SCH ×4 (02:23→20:37)
[2017-08-12] MEDS: ALBUMIN HUMAN 25%-12.5GM/50ML 50 ML IV SCH (04:35)
[2017-08-12 04:48] VITALS: BP 120/50
[2017-08-12] MEDS: INSULIN REGULAR, HUMAN 100 UNITS/ML SQ PRN ×2 (06:14→13:45)
[2017-08-12 06:17] LABS: GLUCOSE COMMENT 1 Received Meds; GLUCOSE,POINT OF CARE 216 MG/DL (70-110)
[2017-08-12 08:09] VITALS: BP 122/60
[2017-08-12] MEDS: MethylPREDNISolone SOD SUCC 40 MG/ML VIAL IVP SCH (08:26)
[2017-08-12] MEDS: CLOPIDOGREL BISULFATE 75 MG TABLET PO SCH (08:27)
[2017-08-12] MEDS: CHOLECALCIFEROL (VIT D3) 1,000 UNITS TABLET PO SCH (08:27)
[2017-08-12] MEDS: MULTIVITAMINS, THERAPEUTIC TABLET PO SCH (08:27)
[2017-08-12] MEDS: DOXYCYCLINE 100 MG CAPSULE PO SCH (08:27)
[2017-08-12] MEDS: ASPIRIN 81 MG EC TABLET PO SCH (08:27)
[2017-08-12] MEDS: HEPARIN SODIUM,PORCINE 5,000 UNITS/ML VIAL SQ SCH ×2 (08:27→20:04)
[2017-08-12] MEDS: DOCUSATE SODIUM 100 MG CAPSULE PO SCH ×2 (08:28→20:04)
[2017-08-12] MEDS: PANTOPRAZOLE SODIUM 40 MG/VIAL IVP SCH (08:28)
[2017-08-12] MEDS: MetroNIDAZOLE 500 MG TABLET PO SCH (08:29)
[2017-08-12 09:08] LABS: GLUCOSE COMMENT 1 Received Meds; GLUCOSE,POINT OF CARE 209 MG/DL (70-110)
[2017-08-12 11:22] VITALS: BP 94/57
[2017-08-12] MEDS ORDERED: INFLUENZA VIRUS VACCINE QVS 2017-18 (3YR+)/PF 60 MCG/0.5 ML SYRINGE IM ONE (11:30)
[2017-08-12] MEDS ORDERED: PNEUMOCOCCAL VACCINE POLYVALENT 0.5 ML VIAL [PPSV23] IM ONE (12:15)
[2017-08-12 15:40] VITALS: BP 115/65
[2017-08-12 18:42] LABS: GLUCOSE,POINT OF CARE 194 MG/DL (70-110)
[2017-08-12 18:42] LABS: GLUCOSE,POINT OF CARE 130 MG/DL (70-110)
[2017-08-12 20:11] VITALS: BP 117/61
[2017-08-12 23:56] VITALS: BP 123/64
[2017-08-13] MEDS: IPRATROPIUM BROMIDE 0.5 MG/2.5 ML NEB SOLUTION NEB SCH ×3 (02:10→14:12)
[2017-08-13] MEDS: ALBUTEROL SULFATE 2.5 MG/0.5 ML NEB SOLUTION NEB SCH ×3 (02:10→14:12)
[2017-08-13 04:18] LABS: GLUCOSE,POINT OF CARE 164 MG/DL (70-110)
[2017-08-13 04:24] VITALS: BP 111/65
[2017-08-13] MEDS: ACETAMINOPHEN 325 MG TABLET PO PRN (04:43)
[2017-08-13] MEDS: INSULIN REGULAR, HUMAN 100 UNITS/ML SQ PRN ×2 (06:12→13:11)
[2017-08-13 06:22] LABS: GLUCOSE,POINT OF CARE 175 MG/DL (70-110)
[2017-08-13 08:07] VITALS: BP 115/54
[2017-08-13] MEDS: ASPIRIN 81 MG EC TABLET PO SCH (08:51)
[2017-08-13] MEDS: DOCUSATE SODIUM 100 MG CAPSULE PO SCH (08:51)
[2017-08-13] MEDS: CLOPIDOGREL BISULFATE 75 MG TABLET PO SCH (08:51)
[2017-08-13] MEDS: MULTIVITAMINS, THERAPEUTIC TABLET PO SCH (08:51)
[2017-08-13] MEDS ORDERED: PANTOPRAZOLE SODIUM 40 MG DR TABLET PO SCH (09:00)
[2017-08-13] MEDS: CHOLECALCIFEROL (VIT D3) 1,000 UNITS TABLET PO SCH (09:00)
[2017-08-13] MEDS: HEPARIN SODIUM,PORCINE 5,000 UNITS/ML VIAL SQ SCH (09:00)
[2017-08-13 11:00] VITALS: BP 114/56
[2017-08-13] MEDS ORDERED: AUD NEB (12:20)
[2017-08-13] MEDS ORDERED: HEPA500018 SQ (12:22)
[2017-08-13] MEDS ORDERED: IPRNEB IH (12:23)
[2017-08-13] MEDS ORDERED: INSREG SQ (12:28)
[2017-08-13 12:48] LABS: GLUCOSE,POINT OF CARE 145 MG/DL (70-110)
== END 2017-08-13 14:36 | DRG 870 ==
LOC: EMS 01:10 → ICU 03:00 → 6N 08-11 15:10
PROVIDERS: ADMIT Internal Medicine; ATTEND Internal Medicine
PROC: 0BH17EZ Insertion of Endotracheal Airway into Trachea, Via Natural or Artificial Opening (ICD-10-PCS; principal; 2017-07-28)
PROC: 5A1955Z Respiratory Ventilation, Greater than 96 Consecutive Hours (ICD-10-PCS; 2017-07-28)
PROC: 5A09357 Assistance with Respiratory Ventilation, Less than 24 Consecutive Hours, Continuous Positive Airway Pressure (ICD-10-PCS; 2017-07-28)
PROC: 3E0234Z Introduction of Serum, Toxoid and Vaccine into Muscle, Percutaneous Approach (ICD-10-PCS; 2017-07-30)
PROC: 3E0234Z Introduction of Serum, Toxoid and Vaccine into Muscle, Percutaneous Approach (ICD-10-PCS; 2017-07-30)
DX: A41.9 Sepsis, unspecified organism (principal); J96.01 Acute respiratory failure with hypoxia; J69.0 Pneumonitis due to inhalation of food and vomit; E43 Unspecified severe protein-calorie malnutrition; J10.08 Influenza due to other identified influenza virus with other specified pneumonia; I11.0 Hypertensive heart disease with heart failure; N17.9 Acute kidney failure, unspecified; E87.2 Acidosis; I50.40 Unspecified combined systolic (congestive) and diastolic (congestive) heart failure; Z99.11 Dependence on respirator [ventilator] status; D63.8 Anemia in other chronic diseases classified elsewhere; E11.9 Type 2 diabetes mellitus without complications; J44.0 Chronic obstructive pulmonary disease with (acute) lower respiratory infection; J44.1 Chronic obstructive pulmonary disease with (acute) exacerbation; J98.11 Atelectasis; E03.9 Hypothyroidism, unspecified; E78.5 Hyperlipidemia, unspecified; D72.819 Decreased white blood cell count, unspecified; F01.50 Vascular dementia, unspecified severity, without behavioral disturbance, psychotic disturbance, mood disturbance, and anxiety; I25.10 Atherosclerotic heart disease of native coronary artery without angina pectoris; J10.1 Influenza due to other identified influenza virus with other respiratory manifestations; K21.9 Gastro-esophageal reflux disease without esophagitis; K59.00 Constipation, unspecified; M19.90 Unspecified osteoarthritis, unspecified site; Z51.5 Encounter for palliative care; Z66 Do not resuscitate; Z86.73 Personal history of transient ischemic attack (TIA), and cerebral infarction without residual deficits; Z87.891 Personal history of nicotine dependence; Z88.0 Allergy status to penicillin; Z95.5 Presence of coronary angioplasty implant and graft; Z23 Encounter for immunization
CPT/HCPCS: 70450; 71250; 82607; 82746; 82805; 82962; 83605; 83735; 84145; 84439; 84443; 87040; 87070; 87081; 87205; 87449; 87798; 87804; 87899; 92526; 92610; 93005; 93306; 93970; 94002; 94003; 94640; 94660; 96361; 96365; 96368; 99291; C9113; J0330; J0692; J0696; J1630; J1644; J2060; J2250; J2704; J2920; J3370; J3490; J7040; J7050; J7060; P9047